=== PATIENT | female | born 1945 | race Caucasian/White ===

== ENCOUNTER → 2020-09-29 | Outpatient (CLI) | payer MEDICARE, OTHER | END | disposition home or self-care (01) | LOC: LABPAT 13:02 | PROVIDERS: ATTEND Orthopaedic Surgery | DX: Z01.812 Encounter for preprocedural laboratory examination (principal); Z22.322 Carrier or suspected carrier of Methicillin resistant Staphylococcus aureus; M43.16 Spondylolisthesis, lumbar region | CPT/HCPCS: 87070 ==

== ENCOUNTER 2020-10-05 08:20 | Day surgery (SDC) | payer MEDICARE, OTHER ==
[2020-10-01 12:19] VITALS: BMI 27.1
--- NOTE | 2020-10-04 09:43 | P.HPOR ---
History of Present Illness H&P Date: 09/29/20 Chief Complaint: Back pain, Leg pain, neurogenic claudication This 75 year old female presents today for a follow up on her back pain and preoperative evaluation. She is still having the same symptoms with low back pain, leg pain, difficulty with walking distances and cramping in her legs. She has tried OTC, RX, PT, injections with no relief. She states she is ready for surgery at this time. She denies any bowel or bladder issues. She denies any genital numbness/tingling. She states no f/c/sob/cp at this time. Her has accompanied her today. Review of Systems 14 points review of systems completed and as stated in HPI, all other systems reviewed are negative. Past Medical History Past Medical History: Chest Pain / Angina, GERD/Reflux, Hypertension, Myocardial Infarction (CO), Osteoarthritis (OA), Renal Disease, Rheumatoid Arthritis (RA), Skin Disorder Additional Past Medical History / Comment(s): hx migraines, CO x 4, irregular heartrate, constipation, "bloating", gout, degenerating disks, psoriasis, anemia, hx kidney stones, frequent UTI's Last Myocardial Infarction Date:: unknown History of Any Multi-Drug Resistant Organisms: None Reported Past Surgical History: Hernia Repair, Hysterectomy Additional Past Surgical History / Comment(s): colonsocopy, EGD, bev cataracts Past Anesthesia/Blood Transfusion Reactions: Motion Sickness Smoking Status: Former smoker - Past Family History Sister(s) Family Medical History: Cancer Medications and Allergies Home Medications Medication Instructions Recorded Confirmed Type Allopurinol [Zyloprim] 100 mg PO DAILY 10/01/20 10/01/20 History Ammonium Lactate Cream [Lac-Hydrin 1 applic TOPICAL BID 10/01/20 10/01/20 History 12% Cream] Aspirin 325 mg PO DAILY PRN 10/01/20 10/01/20 History Aspirin EC [Ecotrin Low Dose] 81 mg PO DAILY 10/01/20 10/01/20 History Claritin(Dose Unknown) 1 tab PO DAILY 10/01/20 10/01/20 History Col-Ride 1 tab PO DAILY 10/01/20 10/01/20 History Denosumab [Prolia] 120 mg SQ DIRECTED 10/01/20 10/01/20 History Esomeprazole Magnesium [NexIUM] 40 mg PO DAILY 10/01/20 10/01/20 History Ferrous Sulfate [Slow Release Iron] 250 mg PO DAILY 10/01/20 10/01/20 History Folic Acid 1 mg PO DAILY 10/01/20 10/01/20 History Furosemide [Lasix] 20 mg PO DAILY 10/01/20 10/01/20 History Gabapentin [Neurontin] 100 mg PO BID 10/01/20 10/01/20 History Ketoconazole 2% Cream [Nizoral 2%] 1 applic TOPICAL DAILY 10/01/20 10/01/20 History Linaclotide [Linzess] 145 mcg PO DAILY 10/01/20 10/01/20 History Magnesium Oxide 400 mg PO DAILY 10/01/20 10/01/20 History Meclizine [Antivert] 12.5 mg PO TID PRN 10/01/20 10/01/20 History Morphine Sulfate Ir [MSIR] 15 mg PO BID PRN 10/01/20 10/01/20 History Morphine Sulfate [Ms Contin] 30 mg PO Q12HR 10/01/20 10/01/20 History Nitroglycerin Sl Tabs [Nitrostat] 0.4 mg SUBLINGUAL Q5M PRN 10/01/20 10/01/20 Hi story Prochlorperazine [Compazine] 10 mg PO Q6H PRN 10/01/20 10/01/20 History Triamcinolone 0.1% Cream [Kenalog 1 applic TOPICAL DAILY PRN 10/01/20 10/01/20 History 0.1% Cream] Zim,S Max Freeze 1 applicate TOPICAL DIRECTED PRN 10/01/20 10/01/20 History polyethylene glycoL 3350 [Miralax] 17 gm PO Q48H 10/01/20 10/01/20 History Allergies Allergy/AdvReac Type Severity Reaction Status Date / Time acetaminophen [From Lortab] Allergy Unknown Verified 10/01/20 11:49 adalimumab [From Humira] Allergy Unknown Verified 10/01/20 11:49 alprazolam [From Xanax] Allergy Unknown Verified 10/01/20 11:51 certolizumab pegol Allergy Unknown Verified 10/01/20 11:49 [From Cimzia] ciprofloxacin [From Cipro] Allergy Unknown Verified 10/01/20 11:49 clindamycin Allergy Unknown Verified 10/01/20 11:49 codeine Allergy Unknown Verified 10/01/20 11:49 escitalopram [From Lexapro] Allergy Unknown Verified 10/01/20 11:49 hydrocodone [From Lortab] Allergy Unknown Verified 10/01/20 11:49 hydroxyzine Allergy Unknown Verified 10/01/20 11:51 infliximab [From Remicade] Allergy Unknown Verified 10/01/20 11:49 methotrexate Allergy Unknown Verified 10/01/20 11:49 metronidazole [From Flagyl] Allergy Unknown Verified 10/01/20 11:49 naproxen Allergy Unknown Verified 10/01/20 11:51 paroxetine [From Paxil] Allergy Unknown Verified 10/01/20 11:49 Penicillins Allergy Unknown Verified 10/01/20 11:49 pilocarpine Allergy Unknown Verified 10/01/20 11:51 sertraline [From Zoloft] Allergy Unknown Verified 10/01/20 11:51 sulfamethoxazole Allergy Unknown Verified 10/01/20 11:49 [From Bactrim] sulfate ion Allergy Unknown Verified 10/01/20 11:49 trimethoprim [From Bactrim] Allergy Unknown Verified 10/01/20 11:49 ustekinumab [From Stelara] Allergy Unknown Verified 10/01/20 11:49 Physical Examination Osteopathic Statement: *. No significant issues noted on an osteopathic structural exam other than those noted in the History and Physical/Consult. PHYSICAL EXAMINATION: General: Awake, alert, appropriate for age, in no acute distress. HEENT: No unusual neck masses around region of lateral neck triangle, thyroid, supraclavicular groove Heart: Regular rate and rhythm, normal S1, S2 and no murmur/gallop. Lungs: Clear to auscultation bilaterally with no use of accessory muscles. Extremities: Skin warm and dry without acute lesions, coloration, temperature, skin intact, no tenderness or erythema Palpation: Please see Pain drawing on Intake sheet for further detail. Midline spinal tenderness: yes lumbar E6 Paralumbar tenderness: yes left > right E6 Parathoracic tenderness: No E6 Buttocks tenderness: yes left > right E6 POSTURAL and MUSCULO-SKELETAL EVALUATION: Coronal Balance: Neutral Recumbent testing: Patient is able to lay flat on back Sagittal Balance: Neutral Neck ROM: Unrestricted Lumbar ROM: restricted with pain Shoulder ROM: Symmetric in abduction, ER/IR Hip ROM: Symmetric in abduction, adduction, ER/IR Knee ROM: Symmetric and intact in Flexion / extension VASCULAR STATUS : LEFT RIGHT Wrist Pulses intact intact Pedal Pulses (Dors. pedis & post.tibialis) intact intact Color normal normal Edema Absent Absent Cranial Nerves: I: Olfactory not tested. II: Visual acuity normal, no visual field deficit noted with confrontation. III,IV: Normal pupillary reflexes & intact extraocular movements without nystagmus. V,: Intact symmetrical facial sensation. VII: Intact symmetrical facial motor movement VIII: Hearing intact. IX,X: Intact gag, swallow, & normal voice. XI: Sternocleidomastoid, trapezius function intact. XII: Tongue midline with normal movements. L'hermitte's Sign: Negative / absent Spurling'Sign: Absent bilaterally. Cubital percussion test: Absent bilaterally. Patsy-Tinel sign - Carpal region: Absent bilaterally. Straight Leg Raising: Absent bilaterally. Crossed straight leg raise: negative O8 MOTOR EXAM (0-5/5, N/T) STRENGTH RIGHT LEFT Shoulder Abd (not part of the INOCENCIO score) 5 5 Elbow Flexors 5 5 Elbow Extensor 5 5 Wrist Dorsiflexors 5 5 Finger Abductor 5 5 Conference Interpreter 5 5 Hip Flexor (Not part of INOCENCIO Motor score) 5 5 Knee Flexor 5 5 Knee Extensor 4 4 Ankle dorsiflexor 4+ 4 Ankle plantarflexion 4 4 Extensor hallucis 5 5 REFLEXES(0-4/2, NT) RIGHT LEFT Upper Extremities 2 2 Lower Extremities 2 2 Pathological Reflexes RIGHT LEFT Abernathy's Absent Absent Clonus Absent Absent Sensory system (0-4, N/T) Test type RU JUNIOR RL LL Joint-Position 2 2 2 2 Vibration 2 2 2 2 Pain & LT sense 2 2 2 2 Dermatomal Deficit: none none none none Gait and Functional Evaluation: Romberg's test: Intact bilaterally Toe heel walk / heel-toe walk intact while maintaining satisfactory balance? No Squatting/straightening w/o assistance to a min of 60 degree knee flexion? No Single leg stance: intact Trendelenburg sign negative bilaterally Hand and finger dexterity intact bilaterally? yes Disdiadochokinesis examination negative bilaterally? yes Results XRAY: AP lateral flex/ex films of L spine show L4-5 Grade I-II spondylolisthesis that is unstable and accentuates on flexion films to around 8-9 mm. There is disc dessication at this level as well as at L5-S1. There is kyphosis of the segment at L4-5. There is spondylosis from L4-S1 with severe spondylosis at L5-S1. There is foraminal stenosis noted as well. AP pelvis shows no acute fracture or dislocaion. Pelvis is stable. CT of the L spine is reviewed from ER visit. This demonstrates similar findings with L4-5 Grade II spondylolisthesis with L5-S1 spondylosis with severe disc dessication, air in the disc space, stenosis centrally as well as foraminally at these levels. No acute fracture or dislocation is noted. MRI of the lumbar spine from 08/09/2020 reveals: grade 2 anterolisthesis L4-L5 with severe arthrosis of the facet joints as well as L5-S1 spondylosis severe with facet arthrosis. There is stenosis foraminally as well essentially related to both of these problems with facet overgrowth and ligamentum flavum hypertrophy. No acute fractures or dislocations noted. Assessment and Plan Assessment: 1. 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 L5-S1 spondylosis severe with radiculopathy 3. Neurogenic claudication 4. Mechanical back pain Plan: Surgical Procedure Risk Review Cierra Roberto is a 75 year old female presenting for evaluation of sudden onset of low back pain, radiculopathy and neurogenic claudication. It was my pleasure to have seen and examined Ms. Roberto. In our visit today we have had a chance to go over subjective complaints, physical examination findings and treatments, including the natural course history without intervention and various interventional options. The imaging demonstrates L4-5 Grade I to II spondylolisthesis with L4-S1 spondylosis severe . On physical exam, Ms. Roberto demonstrates Back pain, LE weakness, difficulty with walking. I explained to the patient that as her condition progresses it could cause continued pain, . At this time, based on the patients imaging and physical exam, I recommend surgery in the form or a: L4-S1 decompression and fusion. I discussed the risk and benefits of this procedure at length with Ms. Roberto. The patient agreed to consider pursuing the procedure mentioned above. Plan: 1. L4-S1 decompression and fusion 2. Follow up with PCP for surgical clearance 3. Review of surgical risks and benefits as well as an educational packet on the proposed surgical procedure. Risks: All surgical procedures come with inherent risks, including those related to positioning, anesthesia, intraoperative findings, and postoperative complications. It is important to understand that surgery does not come with any guarantee of a successful outcome as complications and adverse events are always possible. The patient was given a handout in office today discussing the surgical procedure and risks associated with the intervention, both of which were discussed with the patient. These risks include but are not limited to the following: ? Experiencing same, different or even worse symptoms in back, neck, arms, or legs compared to before surgery. ? Requiring further surgery or other forms of treatment presently or at some time in the future at same or other levels of the intended spine surgery. ? On an extreme but fortunately relatively rare basis severe complication such as blindness, stroke, heart attack, temporary and/or permanent nerve injury, paralysis, coma, or may occur, sometimes without known explanation. ? Surgical complications may include but are not limited to risk of infection, fluid accumulation in the surgical dissection site, including a seroma or hematoma, that requires additional surgery, wound drainage, bleeding, new numbness or weakness, vision changes/loss, spinal fluid leakage, non-healing and/or infected incision, headaches, difficulty or inability to swallow, hoarseness, hemopneumothorax, pneumothorax, impotence, retrograde ejaculation, vaginal dryness; injury to nerves, spinal cord, blood vessels, lymphatics or other vital organs (i.e., bowel injury, injury to the great vessels); heterotop ic bone formation; complications related to the hardware such as screws, rods, cages including misplaced hardware, device failure, instrumentation at the wrong spine level, hardware fracture/breakage, or hardware loosening; vertebral failure of the spinal column above or below the newly placed hardware; retained surgical instrumentations or devices and the need for further surgery. ? Medical risks of the planned spine surgery include but are not limited to generalized Infections to the whole body or local areas outside of the surgical site (sepsis), heart attack, bleeding, anaphylaxis, meningitis, seizure, epilepsy, hearing loss, burn liu, laceration of the head or other areas of the body, bruising, hypersensitivity of the skin, bladder over distension; allergic reaction; shoulder injury related to positioning; fat, blood and air clots to other areas of the body like heart, lungs, brain; failure of internal organs such as lungs, kidneys, liver and excessive bleeding. If blood transfusions are necessary, note that transfusions may cause intolerance reactions such as anaphylaxis or other complex reactions. Despite best efforts, the results of spine surgery might not heal in terms of bone, soft tissues such as skin, fascia, ligaments, and joints. Additionally, in order to achieve best possible results, spine surgery may be carried out beyond the initially planned levels and involve decompression, fusion including insertion of hardware at levels other than the original intended area of surgical interest change some portions of the procedure in order to ensure the best possible outcomes. With spine surgery and spinal fusion, there are different off label uses of instrumentation (devices, implants and hardware) as well as biological substances (bone morphogenic proteins, demineralized bone matrix) as well as using extra bone from allograft sources (i.e. cadaver bone) or autograft (iliac crest bone, ribs, or the spine itself). The patient has been given information about these practices and their inherent risks and benefits. [facility] Physician Assistants are medically trained surgical providers who function in the outpatient, inpatient, and operating room setting under the direct supervision of the attending surgeon.They assist in the operating room with direct supervision of the attending surgeons. The patient has had a chance to review all the listed information, has been given print outs detailing this information, and has had all his/her questions answered to their satisfaction. It was my pleasure to have seen and examined Ms. Roberto. In our visit today we have had a chance to go over my understanding of our patient's current condition, the natural course history without intervention and various interventional options. Questions were invited and answered, and the patient wishes to proceed as outlined above. I have seen and examined the patient for 25 minutes and we have spent more than 50% of the time in repeat and detailed counseling about the patient's condition, its natural course history with out and as much as can be predicted with surgery and re-review of various surgical treatment options. In conclusion,Ms. Roberto and her spouse/partner requested we proceed with the above suggested surgery and are willing to accept risks and limitations of the suggested surgery as nature of the disease process and our best attempts at treatment for the condition. Thank you again for allowing us to be part of your patient's care. Please don't hesitate to contact me if you have any further questions. Signed and authenticated by: Kamar [facility] [address] [place] [address] This message is confidential, intended only for the named recipient(s) and may contain information that is privileged or exempt from disclosure under applicable law. If you are not the intended recipient(s), you are notified that the dissemination, distribution or copying of this information is strictly prohibited. If you received this message in error, please notify the sender then delete this message. Patient verbalizes understanding of the information discussed.
[~2020-10-05 08:20] MED LIST: ACETAMINOPHEN TAB 500 MG TAB PO PRN; GABAPENTIN 300 MG CAP PO PRN; ONDANSETRON 4 MG/2 ML VIAL IVP PRN; TRANEXAMIC ACID 1,000 MG in SODIUM CHLORIDE 0.9% 100 ML IVPB PRN
[2020-10-05] MEDS ORDERED: LACTATED RINGERS 1,000 ML IV ONE ×3 (09:40→16:42)
[2020-10-05] MEDS ORDERED: DEXAMETHASONE SOD PHOSPHATE 4 MG/ML 1 ML VIAL IVP ONE (09:54)
[2020-10-05] MEDS ORDERED: MIDAZOLAM 2 MG/2 ML VIAL IVP ONE (09:55)
[2020-10-05] MEDS ORDERED: FAMOTIDINE 20 MG/2 ML VIAL IVP ONE (09:56)
[2020-10-05] MEDS: CITRIC ACID-SODIUM CITRATE 15 ML CUP PO SCH ×3 (11:04→22:21)
[2020-10-05] MEDS ORDERED: fentaNYL (PF) 50 MCG/ML 2 ML AMP ONE (12:13)
[2020-10-05] MEDS ORDERED: PHENYLEPHRINE-0.9% NACL SYG 1,000 MCG/10 ML SYRINGE ONE (12:13)
[2020-10-05] MEDS ORDERED: PROPOFOL 10 MG/ML 20 ML VIAL IV ONE (12:13)
[2020-10-05] MEDS ORDERED: TRANEXAMIC ACID 1,000 MG/10 ML VIAL ONE (12:13)
[2020-10-05] MEDS ORDERED: LIDOCAINE 1% INJ 10MG/ML (20 ML MDV) ONE (12:13)
[2020-10-05] MEDS ORDERED: SODIUM CHLORIDE 0.9% 100 ML BAG ONE (12:13)
[2020-10-05] MEDS ORDERED: SUCCINYLCHOLINE CHLORIDE 100 MG/5 ML SYR IV ONE (12:13)
[2020-10-05] MEDS ORDERED: GLYCOPYRROLATE 0.2 MG/ML 2 ML VIAL ONE (12:13)
[2020-10-05] MEDS ORDERED: MIDAZOLAM 2 MG/2 ML VIAL ONE (12:13)
[2020-10-05] MEDS ORDERED: BUPIVACAINE (PF) 0.5% 30 ML VIAL SQ ONE (12:57)
[2020-10-05] MEDS ORDERED: THROMBIN (BOVINE) 5,000 UNIT VIAL MISCELLANE ONE (13:07)
[2020-10-05] MEDS ORDERED: GELATIN SPONGE,ABSORB (LARGE) 1 EACH SPONGE MISCELLANE ONE (13:07)
[2020-10-05] MEDS ORDERED: ceFAZolin 3,000 MG in SODIUM CHLORIDE 0.9% IRRIGATIO 3,000 ML IRRIGATION ONE ×2 (13:32→16:31)
[2020-10-05 13:52] LABS: ABG Base Excess -3.5 mmol/L; ABG HCO3 20 mmol/L (21-25); ABG Oxygen Saturation 98.9 % (94-97); ABG PCO2 29 mmHg (35-45); ABG PH 7.44 (7.35-7.45); ABG PO2 200 mmHg (83-108); Allen Test Performed? Yes
[2020-10-05] MEDS ORDERED: VANCOMYCIN 1,000 MG VIAL MISCELLANE ONE (16:02)
[2020-10-05 16:37] LABS: HCT 28.6 % (34.0-46.0); HGB 9.6 gm/dL (11.4-16.0); MCH 30.2 pg (25.0-35.0); MCHC 33.4 g/dL (31.0-37.0); MCV 90.5 fL (80.0-100.0); Mean Platelet Volume 7.9; Platelet Count 123 k/uL (150-450); RBC 3.17 m/uL (3.80-5.40); RDW 14.7 % (11.5-15.5); WBC 9.4 k/uL (3.8-10.6)
--- NOTE | 2020-10-05 17:21 | FL ---
EXAMINATION TYPE: FL guidance operating room, XR lumbar spine 2 or 3V DATE OF EXAM: 10/05/2020 CLINICAL HISTORY: Spondylosis and spondylolisthesis. TECHNIQUE: Fluoroscopy. Intraoperative 2 views lumbar spine. COMPARISON: None. FINDINGS: Fluoroscopic guidance was provided during low back surgical procedure performed by Dr. Pollo marcus. A total of 2 minutes 42 seconds of fluoroscopic time was utilized during the procedure and 13 spot intraoperative images are acquired. Intraoperative images acquired show placement of posterior interpedicular rods and screws bilaterally at L4-S1 levels with placement of metallic disc material. Alignment is satisfactory on intraoperativ e images saved. IMPRESSION: As Above.
[2020-10-05] MEDS ORDERED: GENTAMICIN PER PHARMACY MISCELLANE PRN (17:36)
[2020-10-05] MEDS ORDERED: HYDROcodone/APAP 5-325MG 1 EACH TAB PO PRN (17:38)
[2020-10-05] MEDS: HYDROmorphone 0.5 MG/0.5 ML SYRINGE IVP ONE ×2 (17:53→17:59)
[2020-10-05] MEDS: fentaNYL (PF) 50 MCG/ML 2 ML AMP IVP ONE ×2 (18:07→18:14)
[2020-10-05] MEDS ORDERED: ONDANSETRON 4 MG/2 ML VIAL IVP PRN (18:36)
[2020-10-05] MEDS ORDERED: GENTAMICIN 280 MG in SODIUM CHLORIDE 0.9% 100 ML IVPB SCH (21:00)
[2020-10-05] MEDS: HYDROmorphone 0.5 MG/0.5 ML SYRINGE IVP PRN (22:12)
[2020-10-05] MEDS: GABAPENTIN 300 MG CAP PO SCH (22:13)
[2020-10-05] MEDS: 0.9% NACL WITH KCL 20 MEQ/L 1,000 ML IV SCH (22:17)
[2020-10-06] MEDS: HYDROmorphone 0.5 MG/0.5 ML SYRINGE IVP PRN ×4 (00:01→17:32)
--- NOTE | 2020-10-06 03:09 | P.CONS ---
History of Present Illness - Reason for Consult Consult date: 10/05/20 post op medical management Requesting physician: Kamar Carpenter - Chief Complaint low backpain - History of Present Illness 75 year old female with CKD III, chronic anemia patient comes in for scheduled lumbar decompression and fusion she tolerated procedure well no observed immediate post operative complications Patient denies any chest pain or trouble breathing denies any fevers or chills she claims that pain is well tolerated she tolerated by mouth intake. She denies any new focal neuro deficits Patient has history of chronic kidney disease stage III and chronic anemia she denies any GI bleeding Review of Systems Pertinent positives as noted in HPI. All other systems were reviewed and are negative Past Medical History Past Medical History: Chest Pain / Angina, GERD/Reflux, Hypertension, Myocardial Infarction (MA), Osteoarthritis (OA), Renal Disease, Rheumatoid Arthritis (RA), Skin Disorder Additional Past Medical History / Comment(s): hx migraines, MA x 4, irregular heartrate, constipation, "bloating", gout, degenerating disks, psoriasis, anemia, hx kidney stones, frequent UTI's Last Myocardial Infarction Date:: unknown History of Any Multi-Drug Resistant Organisms: None Reported Past Surgical History: Hernia Repair, Hysterectomy Additional Past Surgical History / Comment(s): colonsocopy, EGD, bev cataracts Past Anesthesia/Blood Transfusion Reactions: Motion Sickness Smoking Status: Former smoker - Past Family History Sister(s) Family Medical History: Cancer Medications and Allergies Home Medications Medication Instructions Recorded Confirmed Type Allopurinol [Zyloprim] 100 mg PO DAILY 10/01/20 10/01/20 History Ammonium Lactate Cream [Lac-Hydrin 1 applic TOPICAL BID 10/01/20 10/01/20 History 12% Cream] Aspirin 325 mg PO DAILY PRN 10/01/20 10/01/20 History Aspirin EC [Ecotrin Low Dose] 81 mg PO DAILY 10/01/20 10/01/20 History Claritin(Dose Unknown) 1 tab PO DAILY 10/01/20 10/01/20 History Col-Ride 1 tab PO DAILY 10/01/20 10/01/20 History Denosumab [Prolia] 120 mg SQ DIRECTED 10/01/20 10/01/20 History Esomeprazole Magnesium [NexIUM] 40 mg PO DAILY 10/01/20 10/05/20 History Ferrous Sulfate [Slow Release Iron] 250 mg PO DAILY 10/01/20 10/01/20 History Folic Acid 1 mg PO DAILY 10/01/20 10/01/20 History Furosemide [Lasix] 20 mg PO DAILY 10/01/20 10/01/20 History Gabapentin [Neurontin] 100 mg PO BID 10/01/20 10/01/20 History Ketoconazole 2% Cream [Nizoral 2%] 1 applic TOPICAL DAILY 10/01/20 10/01/20 History Linaclotide [Linzess] 145 mcg PO DAILY 10/01/20 10/01/20 History Magnesium Oxide 400 mg PO DAILY 10/01/20 10/01/20 History Meclizine [Antivert] 12.5 mg PO TID PRN 10/01/20 10/01/20 History Morphine Sulfate Ir [MSIR] 15 mg PO BID PRN 10/01/20 10/01/20 History Morphine Sulfate [Ms Contin] 30 mg PO Q12HR 10/01/20 10/01/20 History Nitroglycerin Sl Tabs [Nitrostat] 0.4 mg SUBLINGUAL Q5M PRN 10/01/20 10/05/20 History Prochlorperazine [Compazine] 10 mg PO Q6H PRN 10/01/20 10/01/20 History Triamcinolone 0.1% Cream [Kenalog 1 applic TOPICAL DAILY PRN 10/01/20 10/01/20 History 0.1% Cream] Shauna,S Max Freeze 1 applicate TOPICAL DIRECTED PRN 10/01/20 10/01/20 History polyethylene glycoL 3350 [Miralax] 17 gm PO Q48H 10/01/20 10/01/20 History Cyclobenzaprine [Flexeril] 10 mg PO TID 10/05/20 10/05/20 History calcitrioL [Calcitriol] 0.25 mcg PO ONCE 10/05/20 10/05/20 History Allergies Allergy/AdvReac Type Severity Reaction Status Date / Time acetaminophen [From Lortab] Allergy Unknown Verified 10/05/20 08:51 adalimumab [From Humira] Allergy Unknown Verified 10/05/20 08:51 alprazolam [From Xanax] Allergy Unknown Verified 10/05/20 08:51 certolizumab pegol Allergy Unknown Verified 10/05/20 08:51 [From Cimzia] ciprofloxacin [From Cipro] Allergy Unknown Verified 10/05/20 08:51 clindamycin Allergy Unknown Verified 10/05/20 08:51 codeine Allergy Unknown Verified 10/05/20 08:51 escitalopram [From Lexapro] Allergy Unknown Verified 10/05/20 08:51 hydrocodone [From Lortab] Allergy Unknown Verified 10/05/20 08:51 hydroxyzine Allergy Unknown Verified 10/05/20 08:51 infliximab [From Remicade] Allergy Unknown Verified 10/05/20 08:51 methotrexate Allergy Unknown Verified 10/05/20 08:51 metronidazole [From Flagyl] Allergy Unknown Verified 10/05/20 08:51 naproxen Allergy Unknown Verified 10/05/20 08:51 paroxetine [From Paxil] Allergy Unknown Verified 10/05/20 08:51 Penicillins Allergy Unknown Verified 10/05/20 08:51 pilocarpine Allergy Unknown Verified 10/05/20 08:51 sertraline [From Zoloft] Allergy Unknown Verified 10/05/20 08:51 sulfamethoxazole Allergy Unknown Verified 10/05/20 08:51 [From Bactrim] sulfate ion Allergy Unknown Verified 10/05/20 08:51 trimethoprim [From Bactrim] Allergy Unknown Verified 10/05/20 08:51 ustekinumab [From Stelara] Allergy Unknown Verified 10/05/20 08:51 Physical Exam Vitals: Vital Signs Temp Pulse Pulse Resp BP Pulse Ox 10/05/20 20:37 91 19 167/79 96 10/05/20 18:47 71 16 110/56 98 10/05/20 18:31 71 16 101/52 96 10/05/20 18:16 78 16 114/51 97 10/05/20 18:01 80 16 160/82 97 10/05/20 17:46 86 18 137/64 100 10/05/20 17:33 96.7 F L 89 14 142/68 99 10/05/20 10:18 104 H 17 124/61 99 10/05/20 09:04 98.0 F 120 H 17 141/66 98 Intake and Output 10/05/20 10/05/20 10/06/20 14:59 22:59 06:59 Intake Total 1551 601 Output Total 1825 Balance 1551 -1224 Intake: IV 1551 601 Output: Urine 1325 Estimated Blood Loss 500 Constitutional: No acute distress, conversant, pleasant Eyes: Anicteric sclerae, moist conjunctiva, Pupils equal round reactive to light ENMT: NC/AT Oropharynx clear, no erythema, or exudates Neck: Supple, FROM, no masses, or JVD No carotid bruits No thyromegaly Lungs: Clear to auscultation Clear to percussion Normal respiratory effort, no accessory muscle use Cardiovascular: Heart regular in rate and rhythm, No murmurs, gallops, or rubs No peripheral edema Abdominal: Soft Nontender, no guarding, rebound or rigidity Abdomen moving with respiration Normoactive bowel sounds No hepatomegaly, No splenomegaly No palpable mass No abdominal wall hernia noted Skin: Normal temperature, tone, texture, turgor No induration No subcutaneous nodules No rash, lesions No ulcers Extremities: No digital cyanosis No clubbing Pedal pulses intact and symmetrical Radial pulses intact and symmetrical No calf tenderness Psychiatric: Alert and oriented to person, place and time Appropriate affect fair judgement Neuro Muscles Strength 5/5 in bilateral upper extremities, lower extremities distal muscle groups strength 5/5 , however could not assess proximal muscle groups due to patient fear of pain she didn't want to be moving around a lot Sensation to light touch grossly present throughout Cranial nerves II-XII grossly intact No focal sensory deficits Lymphatics: no palpable cervical or supraclavicular , or inguinal lymph nodes Results CBC & Chem 7: 10/05/20 16:33 10/05/20 16:33 Labs: Abnormal Lab Results - Last 24 Hours (Table) 10/05/20 10/05/20 10/05/20 Range/Units 13:40 16:33 16:33 RBC 3.17 L (3.80-5.40) m/uL Hgb 9.6 L (11.4-16.0) gm/dL Hct 28.6 L (34.0-46.0) % Plt Count 123 L (150-450) k/uL ABG pCO2 29 L (35-45) mmHg ABG pO2 200 H (83-108) mmHg ABG HCO3 20 L (21-25) mmol/L ABG O2 Saturation 98.9 H (94-97) % Creatinine 1.66 H (0.52-1.04) mg/dL Assessment and Plan Assessment: Chronic low back pain status post lumbar spine decompression and fusion postoperative day 0 DVT prophylaxis and pain control per orthopedic team Chronic kidney disease stage III No baseline creatinine continue to monitor renal function and urine output monitor electrolytes Bicytopenia with anemia and thrombocytopenia Patient denies any bleeding Anemia of chronic disease Follow-up labs Thank you for allowing us to participate in the care of this patient. Do not hesitate to contact us with questions. Someone can be reached from the [facility] hospitalist group at all hours of the day at [phone].
--- NOTE | 2020-10-06 05:38 | CT ---
EXAMINATION TYPE: CT lumbar spine wo con DATE OF EXAM: 10/06/2020 COMPARISON: None HISTORY: Post Op L-Spine Surgery CT DLP: 957.50 mGycm Automated exposure control for dose reduction was used. Images obtained from the level of T12-S2 vertebra without contrast. There is posterior fusion surgery from L4 to S1. There is disc prosthesis at L4-5 and L5-S1. There is 1 cm anterior subluxation of L4 in relation L5. Exam is limited by the metal artifact. There is no l umbar paraspinal mass. Abdominal aorta is atheromatous. There is no compression fracture. I see no fo sherri bone destruction. Spinal canal not well visualized at the surgery levels but no obvious spinal st enosis. IMPRESSION: There is L4-5 spondylolisthesis. No compression fracture. I have no preoperative exam to compare. No definite pathologic fluid collection seen.
[2020-10-06 07:39] LABS: African American GFR (CKD) 44 (>60 ml/min/1.73 sqM); Anion Gap 11 mmol/L; Blood Urea Nitrogen 29 mg/dL (7-17); Calcium 8.4 mg/dL (8.4-10.2); Carbon Dioxide 22 mmol/L (22-30); Chloride 104 mmol/L (98-107); Glucose 110 mg/dL (74-99); Non-African American GFR(CKD) 38 (>60 ml/min/1.73 sqM); Potassium 4.6 mmol/L (3.5-5.1); Sodium 137 mmol/L (137-145)
--- NOTE | 2020-10-06 08:05 | P.PN ---
Subjective Progress Note Date: 10/06/20 Principal diagnosis: Spondylolisthesis L4 5 Patient seen and examined this morning she is doing very well she is in bed currently but she has been out of bed urinating passing gas and walking around. She states the pain is very well-controlled and she is very happy states the p ain in her leg is much better and that her legs feel stronger. She denies any fevers chills shortness of breath or chest pain overnight her drain is in place and did have a high output overnight however it is slowed significantly Objective - Vital Signs Vital signs: Vital Signs Temp 97.5 F L 10/06/20 07:55 Pulse 101 H 10/06/20 07:55 Resp 16 10/06/20 07:55 BP 122/70 10/06/20 07:55 Pulse Ox 91 L 10/06/20 07:55 Intake & Output 10/05/20 10/06/20 10/06/20 18:59 06:59 18:59 Intake Total 2152 Output Total 1825 1060 Balance 327 -1060 Weight 67.132 kg Intake: IV 2152 Output: Drainage 160 Back 160 Urine 1325 900 Estimated Blood Loss 500 - Exam Patient is alert and oriented 3 appears well-nourished well-hydrated is in no acute distress. They does not appear septic. On exam the patient has no tenderness to palpation of her thoracic or lumbar spine. There is no edema or ballottement sign. Lower extremities with 5 out of 5 strength in all major muscle groups Upper extremities show 5/5 strength in all major muscle groups. There is FROM that is painless of the b/l UE and LE in all major joints. They are intact to light touch sensation in L2 to S1 nerve distribution. Patient has palpable dorsalis pedis was posterior tibial pulses. Compartments are soft and compressible. Patient shows a negative Homans, Abernathy's, negative Babinski's negative clonus bilaterally. negative straight leg raise bilaterally. No tensioning signs. Cranial nerves II through XII are grossly intact. Overall alignment is well-maintained in the sagittal coronal planes. DTR 2/4 all upper and lower Incision is clean and dry dressing is clean and dry her drain put out 900 overnight however it is slowed significantly. It is serosanguineous in nature. Minimal tenderness to palpation around the incision no fluctuance no hematoma - Labs CBC & Chem 7: 10/05/20 16:33 10/06/20 06:42 Labs: Abnormal Lab Results - Last 24 Hours (Table) 10/05/20 10/05/20 10/05/20 Range/Units 13:40 16:33 16:33 RBC 3.17 L (3.80-5.40) m/uL Hgb 9.6 L (11.4-16.0) gm/dL Hct 28.6 L (34.0-46.0) % Plt Count 123 L (150-450) k/uL ABG pCO2 29 L (35-45) mmHg ABG pO2 200 H (83-108) mmHg ABG HCO3 20 L (21-25) mmol/L ABG O2 Saturation 98.9 H (94-97) % BUN (7-17) mg/dL Creatinine 1.66 H (0.52-1.04) mg/dL Glucose (74-99) mg/dL 10/06/20 Range/Units 06:42 RBC (3.80-5.40) m/uL Hgb (11.4-16.0) gm/dL Hct (34.0-46.0) % Plt Count (150-450) k/uL ABG pCO2 (35-45) mmHg ABG pO2 (83-108) mmHg ABG HCO3 (21-25) mmol/L ABG O2 Saturation (94-97) % BUN 29 H (7-17) mg/dL Creatinine 1.35 H (0.52-1.04) mg/dL Glucose 110 H (74-99) mg/dL Assessment and Plan Assessment: 1. 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 L5-S1 spondylosis severe with radiculopathy 3. Neurogenic claudication 4. Mechanical back pain Plan: -Appreciate medicine management. Symptom Control: -Pain control: Adequate at this time . Would recommend low on the narcotic side of pain medications if needed. Could try a muscle relaxer as well Activity: -Aggressive ambulation protocol. OOB with all meals. OOB or in chair 4-5x daily. -PT/OT No braces needed for up and about Prophylaxis: -TEDs, SCDs, mechanical ppx. OK for heparin today. Early ambulation is best. -GI ppx. Imaging/labs: Computed tomography scan shows hardware in good position with stabilization L4 to S1 No further imaging needed -Trend labs as appropriate Dispo: Pending Home with home health versus rehab. She has somewhat of a difficult home situation and may not be able to care for herself however she would like to go home if possible.
[2020-10-06] MEDS: CITRIC ACID-SODIUM CITRATE 15 ML CUP PO SCH ×4 (08:33→21:48)
[2020-10-06] MEDS: GABAPENTIN 300 MG CAP PO SCH ×3 (08:34→21:48)
[2020-10-06] MEDS: SENNOSIDES 8.6 MG TAB PO SCH (08:34)
[2020-10-06] MEDS: allopurinoL 100 MG TAB PO SCH (08:34)
[2020-10-06] MEDS: PANTOPRAZOLE 40 MG TABLET PO SCH (08:34)
[2020-10-06] MEDS: CYCLOBENZAPRINE 10 MG TAB PO SCH (08:34)
[2020-10-06] MEDS: MORPHINE SULFATE ER 30 MG TABLET PO SCH ×2 (08:56→21:48)
[2020-10-06] MEDS: 0.9% NACL WITH KCL 20 MEQ/L 1,000 ML IV SCH ×2 (09:43→23:45)
[2020-10-06] MEDS ORDERED: GENTAMICIN PER PHARMACY MISCELLANE PRN (10:39)
--- NOTE | 2020-10-06 12:26 | P.OP ---
Date of Procedure: 10/05/20 Preoperative Diagnosis: 1. L4-5 Grade II spondylolisthesis 2. L4-S1 spondylosis 3. L4-S1 stenosis 4. Neurogenic claudication 5. Mechanical back pain Postoperative Diagnosis: 1. L4-5 Grade II spondylolisthesis 2. L4-S1 spondylosis 3. L4-S1 stenosis 4. Neurogenic claudication 5. Mechanical back pain Procedure(s) Performed: 1. L4-S1 posteriolateral interbody fusion 2. L4-S1 bilateral laminectomy, complete facetectomy and foraminotomy 3. L4-5 Intradiscal osteotomy for correction of deformity (3 column) 4. L4-5 spondylolisthesis reduction 5. Use of intraoperative neuromonitoring Implants: [place] screws x6 Globus Sable cages x2 7-13 15 deg lordosis and 6-12 8 deg lordosis Bio4 [place] Autograft Anesthesia: GETA Surgeon: Kamar Carpenter Steel Post Installer #1: Bao Adair (Was present for the entire case and necessary due to the complexity of the case) Estimated Blood Loss (ml): 500 IV fluids (ml): 2,500 Urine output (ml): 500 Pathology: none sent Condition: stable Disposition: PACU Indications for Procedure: 75 yo female presented with back pain, b/l LE pain, feeling of instability in her back for several years. She was found to have L4-5 grade II s ponydlolisthesis as well as L4-S1 spondylosis and severe stenosis L4-S1. She c/o difficulty with ambulation as well as difficulty walking long distances. She had been through multiple different conservative modalities including PT, RX and OTC meds, home exercises, injections with no improvement of her symptoms. She has elected to undergo L4-S1 fusion. We discussed risks and benefits of surgery at length and these were reviewed under risk review. She is willing to proceed with surgery. Operative Findings: Mobile L4-5 Grade II spondylolisthesis with R sided pars defect as well as unstable L5-S1 with high mobility. Exuberent facet arthrosis, with pars elongation at L4. Description of Procedure: The patient was seen and examined in the preoperative area. All preoperative protocols were followed. Informed consent was obtained risks and benefits of the procedure were discussed at length. Risks including bleeding infection damage to the surrounding tissue and risk of reoperation were discussed with the patient. Risk of anesthesia up to and including was a discussed with the patient. These are outlined in the risk review. They were willing to accept these risks and all of the risks of surgery. The patient was given a weight- based dose of antibiotics in the form of 2 g Ancef as well as weight-based dose gentamicin. The patient was seen and evaluated by the anesthesia team who deemed them fit for surgery. The site was marked, the patient was willing to proceed with the procedure. The patient was transferred to the operative suite by the Department of anesthesia. They were then drifted off to sleep by the department anesthesia GETA. The patient tolerated this well. [Corey catheter was placed by nursing staff, atraumatically]. Once confirmation of lines and ventilation the patient was transferred to a [prone Josafat table very carefully]. All bony prominences including wrists, elbows, axilla, chest, hips, and thighs, and feet were padded very well. Special attention was paid to the genitalia and these were padded accordingly. SCDs were placed on bilateral lower extremities and were connected. Arms were well padded and placed [on arm boards up and out in the 90/90 position]. Once in position, again we confirmed good ventilation capabilities and that lines were running appropriately. The patient's lumbar spine was then exposed. 1010s were placed outlining the incision site. Standard alcohol was used to clean the incision site and allowed to dry. C-arm was used to biomark the patient and confirm level for incision which was marked with a skin marker. Operative briefing was performed with all teams and everyone in agreement to proceed. The patient was then prepped and draped in a normal sterile fashion. Timeout was then performed and all parties were in agreement with the procedure to be performed. Skin incision was then made over the previously by marked area midline. Di ssection was taken down to the lumbosacral fascia which was identified and cleaned with a Humphries fasciotomy was then made midline and subperiosteal dissection taken over L3 through S1 for excursion purposes. Once we exposed the L4 5 facet joints as well as L5-S1 region we noted exuberant osteophytic changes as well as pars elongation of the L4 region. We then exposed transverse processes of L4-L5 and the sacral Cheryl S1 these were then decorticated bilaterally. We then proceeded to place screws using AP and lateral fluoroscopy in a sequential fashion starting at L4 on the left-hand side. High-speed bur was used to access the pedicle followed by a pedicle finder and a feeler to ensure that we are not medial. This was followed by the screw. This proceeded on the left-hand side at L4-L5 and S1 followed by the right-hand side at L4-L5 and S1. Once the screws were in position AP and lateral fluoroscopy confirmed good position we then tested the screws and all screws tested above 20 mA. We then proceeded with decompression bilateral laminectomy complete facetectomy and foraminotomies were performed at L4 5 and L5-S1 bilaterally. The nerve roots were completely exposed to the foraminal ligament which was released at L4 5 and L5-S1 bilaterally. Once this was completed and meticulous hemostasis was performed we irrigated the wound thoroughly. We then proceeded with discectomy at L4-L5. We performed an intradiscal osteotomy with quarter-inch osteotome at this level and a 3 column osteotomy technique. This allowed for a Complete discectomy to be performed at L4-L5. Sequential shaving was then taken up to a 11 shaver and a globus Sabal cage was selected 7-1315 lordotic cage. This was then impacted into place and expanded. This provided good distraction however the listhesis was very stubborn and did not fully reduce at this time. We then placed rods on one side of the construct and reduced the floridalma to the screw which allowed for some reduction of the listhesis however was still fairly stubborn in this area. Due to not wanting to tension the nerves anymore we accepted this. We did back fill the cage of bio 4 and DBM. Theracell Bullet's were placed anterior to the cage prior to cage placement. The cages in good position on AP and lateral and was stable. Within Elizabeth attention to the L5-S1 region were complete discectomy was performed sequential shaving was performed. We did scrape the endplates and then placed a Sabal cage 6-12 8 lordotic. This was then expanded under AP and lateral fluoroscopy and provided good reduction and distraction this area. We did back fill is cage with bio 4 as well as DBM and anterior to the cage replaced their cell bullets. The wound was then again copiously irrigated with normal sterile saline. We then selected final rods and placed them very. Lateral fluoroscopy reduce the spondylolisthesis as much as it would allow without undue stress on the nerves. We then placed set screws and final tightened all the set screws. A cross-link was selected and this was then placed. Meticulous hemostasis was then performed using FloSeal and bipolar electrocautery. We then copiously irrigated the wound once again with normal sterile saline. Surgicel was then placed over the dura bone graft was in place and posterior lateral gutters comminution of autograft allograft and bio 4. This was then impacted into place. A deep drain was then placed vancomycin powder was placed deep within the wound and we proceeded with closure in a layered fashion the fascia was then closed with #1 Vicryl in a simple fashion f ollowed by a running barbed unidirectional strata fix. Then closed the subcu tissue can prescribe fascia with 0 Vicryl followed by 2-0 Vicryl in the subcu tissue and 2-0 nylon in the skin in a running fashion. The wound edges approximated very well. We then cleaned and dressed the wound sterilely with sterile Adaptic 4 x 4's and Tegaderms. Drain was stitched in with a 2-0 nylon drain sponge was placed along with a Tegaderm. Drain was hooked up and had good suction. The patient was transferred back to her hospital bed atraumatically. Drain continued to hold suction and were in good position. Patient was then awakened and extubated by the department of anesthesia having tolerated the procedure very well with no complications. She was transferred to the postoperative care unit in stable condition.
[2020-10-06] MEDS: DEXAMETHASONE SOD PHOSPHATE 4 MG/ML 1 ML VIAL IV SCH ×2 (12:27→17:31)
[2020-10-06 13:37] LABS: Basophils # (A) 0.02 X 10*3/uL (0.00-0.10); Basophils % (A) 0.1 %; Eosinophils # (A) 0.02 X 10*3/uL (0.04-0.35); Eosinophils % (A) 0.1 %; HCT 29.8 % (37.2-46.3); HGB 9.1 g/dL (12.0-15.0); Lymphocytes # (A) 2.31 X 10*3/uL (0.90-5.00); Lymphocytes % (A) 13.3 %; MCH 29.7 pg (27.0-32.0); MCHC 30.5 g/dL (32.0-37.0); MCV 97.4 fL (80.0-97.0); Mean Platelet Volume 10.8 fL (9.5-12.2); Monocytes # (A) 1.38 X 10*3/uL (0.20-1.00); Monocytes % (A) 7.9 %; Neutrophils # (A) 13.56 X 10*3/uL (1.80-7.70); Neutrophils % (A) 78.1 %; Platelet Count 196 X 10*3/uL (140-440); RBC 3.06 X 10*6/uL (4.10-5.20); RDW 14.5 % (11.5-14.5); WBC 17.37 X 10*3/uL (4.50-10.00)
[2020-10-06 13:38] LABS: Acanthocytes 2+
--- NOTE | 2020-10-06 14:23 | P.PN ---
<Bryon Santos - Last Filed: 10/06/20 14:13> Subjective Progress Note Date: 10/06/20 Hospital course: Patient is a very pleasant 75-year-old female with a past medical history of c hronic anemia and CTD stage III. Patient currently admitted under Ortho-content production specialist, Dr. Carpenter status post L4 through S1 decompression completed on 10/05/20. We have been consulted for continued medical management. Physical exam: Patient seen and fully evaluated at the bedside. Patient is currently postop day 1 reports feeling slight postoperative pain and lower back with decreased sensation in left lower extremity and burning and left foot. Patient was ambulatory in room previously to experiencing increased pain and burning. Patient denies having any numbness and range of motion remains intact. No further neurological deficits present. Dr. Carpenter notified and no further recommendations at this time. Patient tolerating postoperative diet denies having any nausea or vomiting. Patient does report mild constipation order brian geoffrey for MiraLAX, and we will further evaluate tomorrow. Patient denies having any headache, lightheadedness, dizziness, chest pain, palpitations, shortness of breath, abdominal pain, or experiencing any numbness/tingling/weakness in her extremities. General: non toxic, no distress, appears at stated age Derm: warm, dry Head: atraumatic, normocephalic, symmetric Eyes: EOMI, no lid lag, anicteric sclera Mouth: no lip lesion, mucus membranes moist Cardiovascular: S1S2 reg, no murmur, positive posterior tibial pulse bilateral, Lungs: CTA bilateral, no rhonchi, no rales , no accessory muscle use Abdominal: soft, nontender to palpation, no guarding, no appreciable organomegaly Ext: no gross muscle atrophy, no edema, no contractures. Range of motion intact. Neuro: GCS 15. CN II-XII grossly intact. Patient reports slight decrease in sensation to left lower extremity. Range of motion intact. No further focal neuro deficits Psych: Alert, oriented, appropriate affect Plan of care: Chronic low back pain status post lumbar spine decompression and fusion completed on 10/05/20 -Postop day 1 -Pain management, DVT prophylaxis, PT/OT, and weightbearing per primary admitting orthopedic team. Chronic kidney disease stage III -Continue to monitor closely with repeat a.m. labs. -No previous labs for baseline measurements. Bicytopenia with anemia and thrombocytopenia -Likely chronic in nature, patient does report history of anemia and denies any noted bleeding or bruising. No previous labs for baseline measurements. -We will continue to monitor with repeat a.m. labs. Thank you for allowing us to participate in the care of this pleasant patient. Do not hesitate to contact us with questions. Someone can be reached from the [facility] hospitalist group all hours of the day at [phone] or via perfect serve. Objective - Vital Signs Vital signs: Vital Signs Temp 97.5 F L 10/06/20 07:55 Pulse 101 H 10/06/20 07:55 Resp 16 10/06/20 07:55 BP 122/70 10/06/20 07:55 Pulse Ox 91 L 10/06/20 07:55 Intake & Output 10/05/20 10/06/20 10/06/20 18:59 06:59 18:59 Intake Total 2152 Output Total 1825 1060 Balance 327 -1060 Weight 67.132 kg Intake: IV 2152 Output: Drainage 160 Back 160 Urine 1325 900 Estimated Blood Loss 500 - Labs CBC & Chem 7: 10/06/20 06:42 10/06/20 06:42 Labs: Abnormal Lab Results - Last 24 Hours (Table) 10/05/20 10/05/20 10/05/20 Range/Units 13:40 16:33 16:33 RBC 3.17 L (3.80-5.40) m/uL Hgb 9.6 L (11.4-16.0) gm/dL Hct 28.6 L (34.0-46.0) % Plt Count 123 L (150-450) k/uL ABG pCO2 29 L (35-45) mmHg ABG pO2 200 H (83-108) mmHg ABG HCO3 20 L (21-25) mmol/L ABG O2 Saturation 98.9 H (94-97) % BUN (7-17) mg/dL Creatinine 1.66 H (0.52-1.04) mg/dL Glucose (74-99) mg/dL 10/06/20 Range/Units 06:42 RBC (3.80-5.40) m/uL Hgb (11.4-16.0) gm/dL Hct (34.0-46.0) % Plt Count (150-450) k/uL ABG pCO2 (35-45) mmHg ABG pO2 (83-108) mmHg ABG HCO3 (21-25) mmol/L ABG O2 Saturation (94-97) % BUN 29 H (7-17) mg/dL Creatinine 1.35 H (0.52-1.04) mg/dL Glucose 110 H (74-99) mg/dL <FazalAndressa A - Last Filed: 10/06/20 18:06> Subjective Patient seen and examined independently. Patient was also seen by Bryon Santos NP and case was discussed. I am in agreement with subjective, physical exam, assessment and plan as written above and amended below. Patient seen and examined. D/W patient that interventricular block was on her pre-op EKG and that she has a fast heart rate currently. Patient states that she just received IV pain meds and is now comfortable. D/W nursing that patient just had her first dose of short acting pain meds since 3 am, nurse states she had been intermittently sleeping though out the day. General: ill appearing, mild distress, appears at stated age Derm: warm, dry Head: atraumatic, normocephalic, symmetric Eyes: EOMI, no lid lag, anicteric sclera Mouth: no lip lesion, mucus membranes moist Cardiovascular: S1S2 reg, no murmur, positive posterior tibial pulse bilateral, Lungs: CTA bilateral, no rhonchi, no rales , no accessory muscle use Abdominal: soft, nontender to palpation, no guarding, no appreciable organomegaly Ext: no gross muscle atrophy, no edema, no contractures Neuro: CN II-XI grossly intact, no focal neuro deficits Psych: Alert, oriented, appropriate affect Objective - Vital Signs Vital signs: Vital Signs Temp 98.2 F 10/06/20 14:00 Pulse 128 H 10/06/20 14:00 Resp 16 10/06/20 14:00 BP 121/69 10/06/20 14:00 Pulse Ox 98 10/06/20 14:00 Intake & Output 10/05/20 10/06/20 10/06/20 18:59 06:59 18:59 Intake Total 2152 200 Output Total 1825 1060 Balance 327 -1060 200 Weight 67.132 kg Intake: IV 2152 Oral 200 Output: Drainage 160 Back 160 Urine 1325 900 Estimated Blood Loss 500 Other: Voiding Method Indwelling Catheter - Labs CBC & Chem 7: 10/06/20 16:03 10/06/20 06:42 Labs: Abnormal Lab Results - Last 24 Hours (Table) 10/05/20 10/06/20 10/06/20 Range/Units 16:33 06:42 06:42 WBC 17.37 H (4.50-10.00) X 10*3/uL RBC 3.06 L (4.10-5.20) X 10*6/uL Hgb 9.1 L (12.0-15.0) g/dL Hct 29.8 L (37.2-46.3) % MCV 97.4 H (80.0-97.0) fL MCHC 30.5 L (32.0-37.0) g/dL Immature Gran # 0.08 H (0.00-0.04) X 10*3/uL Neutrophils # 13.56 H (1.80-7.70) X 10*3/uL Monocytes # 1.38 H (0.20-1.00) X 10*3/uL Eosinophils # 0.02 L (0.04-0.35) X 10*3/uL BUN 29 H (7-17) mg/dL Creatinine 1.66 H 1.35 H (0.52-1.04) mg/dL Glucose 110 H (74-99) mg/dL 10/06/20 Range/Units 16:03 WBC 13.7 H (4.50-10.00) X 10*3/uL RBC 3.15 L (4.10-5.20) X 10*6/uL Hgb 9.8 L (12.0-15.0) g/dL Hct 29.0 L (37.2-46.3) % MCV (80.0-97.0) fL MCHC (32.0-37.0) g/dL Immature Gran # (0.00-0.04) X 10*3/uL Neutrophils # (1.80-7.70) X 10*3/uL Monocytes # (0.20-1.00) X 10*3/uL Eosinophils # (0.04-0.35) X 10*3/uL BUN (7-17) mg/dL Creatinine (0.52-1.04) mg/dL Glucose (74-99) mg/dL
[2020-10-06] MEDS ORDERED: SODIUM CHLORIDE 0.9% 500 ML 500 ML IV ONE (14:29)
[2020-10-06 16:26] LABS: HGB 9.8 gm/dL (11.4-16.0); MCHC 33.7 g/dL (31.0-37.0); Mean Platelet Volume 8.4; Platelet Count 182 k/uL (150-450); RBC 3.15 m/uL (3.80-5.40); RDW 14.8 % (11.5-15.5); WBC 13.7 k/uL (3.8-10.6)
[2020-10-06] MEDS: polyethylene glycoL 3350 17 GM POWD.PACK PO SCH (17:32)
[2020-10-06] MEDS ORDERED: IPRATROPIUM-ALBUTEROL 3 ML NEB INHALATION PRN (19:46)
[2020-10-07] MEDS: HYDROmorphone 0.5 MG/0.5 ML SYRINGE IVP PRN ×4 (00:09→18:28)
[2020-10-07] MEDS: DEXAMETHASONE SOD PHOSPHATE 4 MG/ML 1 ML VIAL IV SCH ×5 (00:10→23:42)
[2020-10-07] MEDS: CITRIC ACID-SODIUM CITRATE 15 ML CUP PO SCH ×4 (07:20→21:34)
[2020-10-07] MEDS: MORPHINE SULFATE ER 30 MG TABLET PO SCH ×2 (07:21→21:34)
[2020-10-07] MEDS: allopurinoL 100 MG TAB PO SCH (07:21)
[2020-10-07] MEDS: GABAPENTIN 300 MG CAP PO SCH ×3 (07:21→21:34)
[2020-10-07] MEDS: CYCLOBENZAPRINE 10 MG TAB PO SCH (07:22)
[2020-10-07] MEDS: SENNOSIDES 8.6 MG TAB PO SCH (07:22)
[2020-10-07] MEDS: polyethylene glycoL 3350 17 GM POWD.PACK PO SCH (07:22)
[2020-10-07] MEDS: PANTOPRAZOLE 40 MG TABLET PO SCH (07:22)
--- NOTE | 2020-10-07 08:14 | P.PN ---
Subjective Progress Note Date: 10/07/20 Principal diagnosis: Spondylolisthesis L4 5 Pt s/e. She is awake alert and sitting up in bed getting ready for breakfast. She states she thinks she overdid it yesterday as she is very sore today which could be true as she was up and about yesterday quite often. She was having some pain control issues but she is better now. She is on chronic pain meds, but needs breakthrough and higher doses due to this. She States some pain in her legs but good strength. Denies any f/c/sob/cp overnight. Denies any bowel or bladder symptoms. Corey in place to be DC today. Denies any perineal numbness/tingling. Objective - Vital Signs Vital signs: Vital Signs Temp 99.0 F 10/07/20 07:35 Pulse 102 H 10/07/20 07:35 Resp 20 10/07/20 07:35 BP 117/71 10/07/20 07:35 Pulse Ox 90 L 10/07/20 07:35 Intake & Output 10/06/20 10/07/20 10/07/20 18:59 06:59 18:59 Intake Total 200 Output Total 60 1900 Balance 140 -1900 Intake: Oral 200 Output: Drainage 60 Back 60 Urine 1900 Other: Voiding Method Indwelling Catheter Indwelling Catheter - Exam Exam is repeated today. No changes. Dressing is CDI. No EEE. No fluctuate around incision. Drain site slightly saturated. Mild TTP paralumbar. Patient is alert and oriented 3 appears well-nourished well-hydrated is in no acute distress. They does not appear septic. On exam the patient has no tenderness to palpation of her thoracic or lumbar spine. There is no edema or ballottement sign. Lower extremities with 5 out of 5 strength in all major muscle groups Upper extremities show 5/5 strength in all major muscle groups. There is FROM that is painless of the b/l UE and LE in all major joints. They are intact to light touch sensation in L2 to S1 nerve distribution. Patient has palpable dorsalis pedis was posterior tibial pulses. Compartments are soft and compressible. Patient shows a negative Homans, Abernathy's, negative Babinski's negative clonus bilaterally. negative straight leg raise bilaterally. No tensioning signs. Cranial nerves II through XII are grossly intact. Overall alignment is well-maintained in the sagittal coronal planes. DTR 2/4 all upper and lower Incision is clean and dry dressing is clean and dry her drain put out 900 overnight however it is slowed significantly. It is serosanguineous in nature. Minimal tenderness to palpation around the incision no fluctuance no hematoma - Labs CBC & Chem 7: 10/06/20 16:03 10/06/20 06:42 Labs: Abnormal Lab Results - Last 24 Hours (Table) 10/06/20 10/06/20 Range/Units 06:42 16:03 WBC 17.37 H 13.7 H (4.50-10.00) X 10*3/uL RBC 3.06 L 3.15 L (4.10-5.20) X 10*6/uL Hgb 9.1 L 9.8 L (12.0-15.0) g/dL Hct 29.8 L 29.0 L (37.2-46.3) % MCV 97.4 H (80.0-97.0) fL MCHC 30.5 L (32.0-37.0) g/dL Immature Gran # 0.08 H (0.00-0.04) X 10*3/uL Neutrophils # 13.56 H (1.80-7.70) X 10*3/uL Monocytes # 1.38 H (0.20-1.00) X 10*3/uL Eosinophils # 0.02 L (0.04-0.35) X 10*3/uL Assessment and Plan Assessment: 75 yo female POD2 L4-S1 decompression fusion doing well. 1. 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 L5-S1 spondylosis severe with radiculopathy 3. Neurogenic claudication 4. Mechanical back pain Plan: -Appreciate medicine management. Symptom Control: -Pain control: Adequate at this time . Would recommend low on the narcotic side of pain medications if needed. Could try a muscle relaxer as well Activity: -Aggressive ambulation protocol. OOB with all meals. OOB or in chair 4-5x daily. -PT/OT No braces needed for up and about Prophylaxis: -TEDs, SCDs, mechanical ppx. OK for heparin today. Early ambulation is best. -GI ppx. Imaging/labs: Computed tomography scan shows hardware in good position with stabilization L4 to S1 No further imaging needed -Trend labs as appropriate Dispo: Pending, may need rehab as her home situation is poor for recovery and she does not have a lot of help.
[2020-10-07 08:50] LABS: HCT 26.6 % (37.2-46.3); HGB 8.2 g/dL (12.0-15.0); MCH 29.5 pg (27.0-32.0); MCHC 30.8 g/dL (32.0-37.0); MCV 95.7 fL (80.0-97.0); Mean Platelet Volume 10.4 fL (9.5-12.2); Platelet Count 191 X 10*3/uL (140-440); RBC 2.78 X 10*6/uL (4.10-5.20); RDW 14.6 % (11.5-14.5); WBC 14.04 X 10*3/uL (4.50-10.00)
[2020-10-07] MEDS: 0.9% NACL WITH KCL 20 MEQ/L 1,000 ML IV SCH (13:14)
[2020-10-07] MEDS ORDERED: GENTAMICIN IN NACL ISO-OSM PMX 80 MG in SALINE 1 100ML.BAG IVPB SCH (22:00)
[2020-10-08] MEDS: 0.9% NACL WITH KCL 20 MEQ/L 1,000 ML IV SCH ×2 (03:43→05:59)
[2020-10-08] MEDS: DEXAMETHASONE SOD PHOSPHATE 4 MG/ML 1 ML VIAL IV SCH ×3 (05:57→12:16)
[2020-10-08] MEDS: HYDROmorphone 0.5 MG/0.5 ML SYRINGE IVP PRN (06:09)
[2020-10-08 07:20] LABS: African American GFR (CKD) 48 (>60 ml/min/1.73 sqM); Anion Gap 7 mmol/L; Blood Urea Nitrogen 28 mg/dL (7-17); Calcium 7.6 mg/dL (8.4-10.2); Carbon Dioxide 25 mmol/L (22-30); Chloride 106 mmol/L (98-107); Glucose 124 mg/dL (74-99); Magnesium 2.1 mg/dL (1.6-2.3); Non-African American GFR(CKD) 41 (>60 ml/min/1.73 sqM); Potassium 4.7 mmol/L (3.5-5.1); Sodium 138 mmol/L (137-145)
--- NOTE | 2020-10-08 07:28 | P.PN ---
Subjective Progress Note Date: 10/07/20 Hospital course: Patient is a very pleasant 75-year-old female with a past medical history of chronic anemia and CKD stage III. Patient currently admitted under Ortho-business taxes specialist, Dr. Carpenter status post L4 through S1 decompression completed on 10/05/20. We have been consulted for continued medical management. Physical exam: Patient seen and fully evaluated at the bedside. Patient is currently postop day 2 and reports feeling much better than she previously felt yesterday. Pt states the decreased sensation in her left lower extremity and burning of left foot has completely subsided and currently rated postoperative pain 8 out of 10 at this time in which patient is receiving pain medication from RN as prescribed. Patient has been ambulatory in room and up and down the halls walking with walker without any noted difficulties. Patient denies having any headache, lightheadedness, dizziness, chest pain, palpitations, shortness of breath, abdominal pain, or experiencing any numbness/tingling/weakness in her extremities. General: non toxic, no distress, appears at stated age Derm: warm, dry Head: atraumatic, normocephalic, symmetric Eyes: EOMI, no lid lag, anicteric sclera Mouth: no lip lesion, mucus membranes moist Cardiovascular: S1S2 reg, no murmur, positive posterior tibial pulse bilateral, Lungs: CTA bilateral, no rhonchi, no rales , no accessory muscle use Abdominal: soft, nontender to palpation, no guarding, no appreciable organomegaly Ext: no gross muscle atrophy, no edema, no contractures. Range of motion intact. Neuro: GCS 15. CN II-XII grossly intact. Patient reports slight decrease in sensation to left lower extremity. Range of motion intact. No further focal neuro deficits Psych: Alert, oriented, appropriate affect Plan of care: Chronic low back pain status post lumbar spine decompression and fusion completed on 10/05/20 -Postop day 2 -Pain management, DVT prophylaxis, PT/OT, and weightbearing per primary admitting orthopedic team. Chronic kidney disease stage III -Continue to monitor closely with repeat a.m. labs. -No previous labs for baseline measurements. Anemia of chronic disease, stable -Likely chronic in nature, patient does report history of anemia and denies any noted bleeding or bruising. No previous labs for baseline measurements. -We will continue to monitor with repeat a.m. labs. Thank you for allowing us to participate in the care of this pleasant patient. Do not hesitate to contact us with questions. Someone can be reached from the [facility] hospitalist group all hours of the day at [phone] or via perfect serve. Objective - Vital Signs Vital signs: Vital Signs Temp 99.0 F 10/07/20 07:35 Pulse 102 H 10/07/20 07:35 Resp 20 10/07/20 07:35 BP 117/71 10/07/20 07:35 Pulse Ox 90 L 10/07/20 07:35 Intake & Output 10/06/20 10/07/20 10/07/20 18:59 06:59 18:59 Intake Total 200 200 Output Total 60 1900 Balance 140 -1900 200 Intake: Oral 200 200 Output: Drainage 60 Back 60 Urine 1900 Other: Voiding Method Indwelling Catheter Indwelling Catheter - Labs CBC & Chem 7: 10/07/20 06:19 10/08/20 06:25 Labs: Abnormal Lab Results - Last 24 Hours (Table) 10/06/20 10/06/20 10/07/20 Range/Units 06:42 16:03 06:19 WBC 17.37 H 13.7 H 14.04 H (4.50-10.00) X 10*3/uL RBC 3.06 L 3.15 L 2.78 L (4.10-5.20) X 10*6/uL Hgb 9.1 L 9.8 L 8.2 L (12.0-15.0) g/dL Hct 29.8 L 29.0 L 26.6 L (37.2-46.3) % MCV 97.4 H (80.0-97.0) fL MCHC 30.5 L 30.8 L (32.0-37.0) g/dL RDW 14.6 H (11.5-14.5) % Immature Gran # 0.08 H (0.00-0.04) X 10*3/uL Neutrophils # 13.56 H (1.80-7.70) X 10*3/uL Monocytes # 1.38 H (0.20-1.00) X 10*3/uL Eosinophils # 0.02 L (0.04-0.35) X 10*3/uL
[2020-10-08 07:36] VITALS: BP 114/67; PULSE 84; RESP 20; TEMP 98.3
[2020-10-08] MEDS: CYCLOBENZAPRINE 10 MG TAB PO SCH (08:21)
[2020-10-08] MEDS: SENNOSIDES 8.6 MG TAB PO SCH (08:21)
[2020-10-08] MEDS: GABAPENTIN 300 MG CAP PO SCH (08:21)
[2020-10-08] MEDS: MORPHINE SULFATE ER 30 MG TABLET PO SCH (08:21)
[2020-10-08] MEDS: polyethylene glycoL 3350 17 GM POWD.PACK PO SCH (08:22)
[2020-10-08] MEDS: PANTOPRAZOLE 40 MG TABLET PO SCH (08:22)
[2020-10-08] MEDS: CITRIC ACID-SODIUM CITRATE 15 ML CUP PO SCH ×2 (08:22→12:11)
[2020-10-08] MEDS: allopurinoL 100 MG TAB PO SCH (08:22)
--- NOTE | 2020-10-08 09:10 | P.PN ---
Subjective Progress Note Date: 10/08/20 Principal diagnosis: Spondylolisthesis L4-L5 Patient seen at bedside this morning. She is laying semirecumbent. She is alert and oriented 3. Patient says she walked around the [place] yesterday and is doing well; she says she walks she was pretty sore. She says she thinks she is ready to go to the next step in recovery. She said this morning she did do some bicycle exercises in bed. Patient says she has been passing flatus. Patient also says she has been using incentive spirometer throughout the day. Patient denies any new numbness/tingling. Patient denies loss of bladder/bowel control. Patient denies any saddle anesthesia. Patient denies fever, shortness of beti th, chest, change in vision, nausea, vomiting. Objective - Vital Signs Vital signs: Vital Signs Temp 98.3 F 10/08/20 07:36 Pulse 84 10/08/20 07:36 Resp 20 10/08/20 07:36 BP 114/67 10/08/20 07:36 Pulse Ox 92 L 10/08/20 07:36 Intake & Output 10/07/20 10/08/20 10/08/20 18:59 06:59 18:59 Intake Total 400 942.5 Output Total 400 1600 Balance 0 -657.5 Intake: Intake, IV Titration 942.5 Amount 0.9% NaCl with KCl 20 Meq 792.5 /l 1,000 ml @ 75 mls/hr IV .[id number] [facility] Rx#: [id number] Gentamicin in NaCl Iso- 100 Osm Pmx 80 mg In Saline 1 100ml.bag @ 100 mls/hr IVPB Q24H [facility] Rx#: [id number] ceFAZolin 2 gm In Sodium 50 Chloride 0.9% 50 ml @ 100 mls/hr IVPB Q12HR [facility] Rx #:[id number] Oral 400 Output: Urine 400 1600 Uretheral (Corey) 800 Other: Voiding Method Indwelling Catheter - Exam Incision is clean, dry, intact. There is no fluctuance or purulence from incision. Sutures are intact. Drain was removed and dressing was changed. There is minimal serosanguineous drainage while drain was removed. Incision site was cleaned with ChloraPrep. Adaptics, 4 x 4's, ABDs were applied along with foam tape over the incision. - Labs CBC & Chem 7: 10/07/20 06:19 10/08/20 06:25 Labs: Abnormal Lab Results - Last 24 Hours (Table) 10/07/20 10/08/20 Range/Units 06:19 06:25 WBC 14.04 H (4.50-10.00) X 10*3/uL RBC 2.78 L (4.10-5.20) X 10*6/uL Hgb 8.2 L (12.0-15.0) g/dL Hct 26.6 L (37.2-46.3) % MCHC 30.8 L (32.0-37.0) g/dL RDW 14.6 H (11.5-14.5) % BUN 28 H (7-17) mg/dL Creatinine 1.26 H (0.52-1.04) mg/dL Glucose 124 H (74-99) mg/dL Calcium 7.6 L (8.4-10.2) mg/dL Microbiology - Last 24 Hours (Table) 10/06/20 16:03 Blood Culture - Preliminary Blood No Growth after 24 hours Assessment and Plan Assessment: 75 yo female post-op day 3 L4-S1 decompression fusion 1. 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 L5-S1 spondylosis severe with radiculopathy Plan: 1. L4-S1 Decompression and Fusion - surgery performed 10/05/2020. We'll continu e to follow patient. 2. Appreciate medical management 3. Pain management - stable at this time. Continue regular home morphine. We will discontinue Dilaudid and begin tramadol. 4. GI prophylaxis - continue senna 5. PT/OT - weightbearing as tolerated; up out of bed 4 times a day and up out of bed for all meals 6. Discharge planning- plan for discharge today, 10/08/2020, to rehab. Time with Patient: Less than 30
[2020-10-08] MEDS: traMADol 50 MG TAB PO SCH ×2 (09:19→14:22)
--- NOTE | 2020-10-08 09:59 | P.PN ---
Subjective Progress Note Date: 10/08/20 Hospital course: Patient is a very pleasant 75-year-old female with a past medical history of chronic anemia and CKD stage III. Patient currently admitted under Ortho-applications support specialist, Dr. Carpenter status post L4 through S1 decompression completed on 10/05/20. We have been consulted for continued medical management. Physical exam: Patient seen and fully evaluated at the bedside. Patient is currently postop day 3 and reports feeling great today. However, pt does continue to have persistent urinary retention status post surgery and per RN has been retaining > 600 cc of urine requiring straight catheterization. Patient denies any saddle bag diana and denies having any numbness or tingling sensations in her lower extremities. Patient passing flatus and denies any abdominal pain or complaints. Dr. Carpenter was notified and recommended started patient on Flomax, reinsert Mckeon and consult urology. RN notified and orders placed. Patient continues to be ambulatory in room and walking up and down the hallways with walker. She denies having any headache, lightheadedness, dizziness, chest pain, palpitations, shortness of breath, abdominal pain, or experiencing any numbness/tingling/weakness in her extremities. Per ortho-spine team, plan is for discharge to SNF later today. Per Dr. Carpenter, pt may be discharged with mckeon catheter in place. General: non toxic, no distress, appears at stated age Derm: warm, dry Head: atraumatic, normocephalic, symmetric Eyes: EOMI, no lid lag, anicteric sclera Mouth: no lip lesion, mucus membranes moist Cardiovascular: S1S2 reg, no murmur, positive posterior tibial pulse bilateral, Lungs: CTA bilateral, no rhonchi, no rales , no accessory muscle use Abdominal: soft, nontender to palpation, no guarding, no appreciable organomegaly Ext: no gross muscle atrophy, no edema, no contractures. Range of motion intact. Neuro: GCS 15. CN II-XII grossly intact. Patient reports slight decrease in sensation to left lower extremity. Range of motion intact. No further focal neuro deficits Psych: Alert, oriented, appropriate affect Plan of care: Status post lumbar spine decompression and fusion completed on 10/05/20 -Postop day 3 -Pain management, DVT prophylaxis, PT/OT, and weightbearing per primary admitting orthopedic team. Urinary retention -Flomax 0.4 mg daily -Urology consult -Reinsert Mckeon catheter secondary to repeated episodes of urinary retention/postvoid residual greater than 600 mL requiring straight jayde terization. Chronic kidney disease stage III, stable -Patient reports history of CKD however there are no previous labs for baseline measurements. Anemia of chronic disease, stable -Likely chronic in nature, patient does report history of anemia and denies any noted bleeding or bruising. No previous labs for baseline measurements. Thank you for allowing us to participate in the care of this pleasant patient. Do not hesitate to contact us with questions. Someone can be reached from the [facility] hospitalist group all hours of the day at [phone] or via Telebit. Objective - Vital Signs Vital signs: Vital Signs Temp 98.3 F 10/08/20 07:36 Pulse 84 10/08/20 07:36 Resp 20 10/08/20 07:36 BP 114/67 10/08/20 07:36 Pulse Ox 92 L 10/08/20 07:36 Intake & Output 10/07/20 10/08/20 10/08/20 18:59 06:59 18:59 Intake Total 400 942.5 Output Total 400 1600 Balance 0 -657.5 Intake: Intake, IV Titration 942.5 Amount 0.9% NaCl with KCl 20 Meq 792.5 /l 1,000 ml @ 75 mls/hr IV .[id number] [facility] Rx#: [id number] Gentamicin in NaCl Iso- 100 Osm Pmx 80 mg In Saline 1 100ml.bag @ 100 mls/hr IVPB Q24H [facility] Rx#: [id number] ceFAZolin 2 gm In Sodium 50 Chloride 0.9% 50 ml @ 100 mls/hr IVPB Q12HR [facility] Rx #:[id number] Oral 400 Output: Urine 400 1600 Uretheral (Mckeon) 800 Other: Voiding Method Indwelling Catheter Indwelling Catheter - Labs CBC & Chem 7: 10/07/20 06:19 10/08/20 06:25 Labs: Abnormal Lab Results - Last 24 Hours (Table) 10/08/20 Range/Units 06:25 BUN 28 H (7-17) mg/dL Creatinine 1.26 H (0.52-1.04) mg/dL Glucose 124 H (74-99) mg/dL Calcium 7.6 L (8.4-10.2) mg/dL Microbiology - Last 24 Hours (Table) 10/06/20 16:03 Blood Culture - Preliminary Blood No Growth after 24 hours
[2020-10-08] MEDS ORDERED: TAMSULOSIN 0.4 MG CAP.ER.24H PO SCH (11:00)
[2020-10-08 11:49] LABS: HCT 28.1 % (37.2-46.3); HGB 8.4 g/dL (12.0-15.0); MCH 29.5 pg (27.0-32.0); MCHC 29.9 g/dL (32.0-37.0); MCV 98.6 fL (80.0-97.0); Mean Platelet Volume 10.6 fL (9.5-12.2); Platelet Count 194 X 10*3/uL (140-440); RBC 2.85 X 10*6/uL (4.10-5.20); RDW 14.8 % (11.5-14.5); WBC 15.09 X 10*3/uL (4.50-10.00)
--- NOTE | 2020-10-08 12:24 | P.DS ---
Providers Date of admission: 10/05/20 08:20 Expected date of discharge: 10/08/20 Attending physician: Kamar Carpenter DO Consults: 10/05/20 18:33 Consult Physician Routine Consulting Provider: Andressa Diehl Consult Reason/Comments: Medical management s/p lumbar fusion Do you want consulting provider notified?: Yes 10/08/20 10:52 Consult Physician Routine Consulting Provider: Shubham Zamora Consult Reason/Comments: Urinary retention >600 cc status post lumbar fusion Do you want consulting provider notified?: Yes Primary care physician: Liya Orona DO Hospital Course: Date of admission: 10/05/2020 Date of discharge: 10/08/2020 Admission diagnosis: 1. L4-5 Grade II spondylolisthesis 2. L4-S1 spondylosis 3. L4-S1 stenosis 4. Neurogenic claudication 5. Mechanical back pain Discharge diagnosis: Same Attending physician: Dr. Carpenter Surgical procedures: 1. L4-S1 posteriolateral interbody fusion 2. L4-S1 bilateral laminectomy, complete facetectomy and foraminotomy 3. L4-5 Intradiscal osteotomy for correction of deformity (3 column) 4. L4-5 spondylolisthesis reduction Brief history: Patient is a 75-year-old female with a history of worsening low back pain, bilateral lower extremity radiculopathy. At this point patient has failed conservative treatment measures and has opted to proceed with a elective L4 to S1 posterior lateral interbody fusion, bilateral laminectomy, complete facetectomy and foraminotomy. Hospital course: Details of patient's surgery can be found in operative report. Patient tolerated the procedure well and was subsequently transported to orthopedic floor. Patient's orthopeidc and medical care was provided daily. Patient had daily laboratory tests performed for evaluation of overall blood counts. Patient had daily physical therapy to include strengthening range of motion as well as education with walker ambulation. Patient was noted to have a relatively uneventful postoperative course. Patient reported satisfactory pain control with oral pain medications by postoperative day 3. Patient showed satisfactory progress with physical therapy. Patient moved steadily through the program and had no difficulty meeting the goals by postoperative day 3. Given patient's otherwise satisfactory course and having met physical therapy goals, plan is to discharge patient to rehab on postoperative day 3. Discharge condition/disposition: Patient will be discharged to rehab in stable condition. Discharge medications: Instructions are given on resumption of patient's normal daily medications per primary care recommendation, in addition patient will be prescribed gabapentin 300 mg; tramadol 50 mg; senna; Flexeril 10 mg. Spine Discharge and Recovery Instructions Medications: See medication list All medication refills should be obtained through your primary care doctor or your clinic spine surgeon. Please discuss prescription refills at your follow up appointment. Do not call the hospital for medication refills. Dressing: Leave your dressing in place for a total of 5 days post operatively. Then you may remove your dressing and leave open to air. Keep the area clean and if not able to keep area clean, then cover with sterile gauze and tape. Showering: You may shower 3 days after your procedure allowing soap and water to run over incision. Do not scrub. Do not soak. Blot dry. Follow up: Please confirm a follow up appointment with your surgeon 3 weeks post operatively. Please make an appointment to follow up with your PCP in 1-2 weeks after surgery for evaluation 3 phase, 3-week plan POST OP WEEKS 1-3 1. Lifting/carrying/pushing/pulling limited to less than 5 pounds. 2. Do not sit for longer than 15 minutes at one time. Get up and walk around. Prolonged sitting is NOT advised. If you lay down, see if you can tolerate laying down on you front (belly side) 3. Walk for periods of 15 minutes = 1 mile but no longer; do it multiple times times each day. 4. Ice your low back after activity. POST OP WEEKS 3-6 1. Lifting limited to less than 20 pounds. 2. Do not sit for longer than 30 minutes at a time. Frequently change positions. Use a sit-to stand workstation or take frequent breaks from sitting if you have returned to work. 3. Walk for 30 minutes each day. If possible, do these three or more times a day POST OP WEEKS 6+ At your 6-week appointment we will give you a physical therapy referral to focus on a core stabilization and strengthening program. You should also work on leg & buttock strengthening, hamstring & quadriceps stretching, and continue a low impact aerobic activity program such as swimming, walking, or riding a stationary bicycle. During the initial 6 weeks after your surgery, you are at the highest risk of re-injuring your spine. You should generally avoid BLTs (bending, lifting and twisting combination motions) and follow the above guidelines to reduce the chance of reinjury. You can anticipate post op appointments in our office at approximately 3 weeks and 6 weeks after your surgery. INCISION CARE: If your incision is not draining you do NOT need to cover it with a dressing. Keep your incision clean, dry and intact. In most cases, we apply skin glue, carlotta or sutures to the incision at the time of surgery. This will be like a crust or have the appearance of a scab and will fall off in time on its own. The stitches or carlotta need to be removed at 3 weeks post op appointment. You may begin to shower 3 days after surgery (this allows the glue to garcia well). However, please avoid scrubbing the incision site or peeling off any of the skin glue. This will ensure optimal healing of your incision. Also, during this time avoid soaking the incision area in water - this includes swimming pools, hot tubs or baths. No ointments, lotions or oils on the incision until your surgeon allows. Leave carlotta, sutures or glue in place. Neurological dysfunction that comes on suddenly can also be a sign of a stroke. Below some common symptoms of a stroke are listed: B - balance difficulty such as sudden onset walking or leaning to one side - NEW E - eye problem such as sudden double vision or trouble seeing on one side - NEW F - Facial weakness or numbness on one side - NEW A - Arm or leg weakness or numbness on one side - NEW S - Slurred speech or difficulty with word finding - NEW T - Time is BRAIN! Call 911 as soon as you recognize these symptoms Diet: Consume a regular diet rich in vegetables and lean protein such as chicken or fish. You should consume in a ratio of approximately 20% fats|40% carbohydrates|40%protein. Vegetables, sweet potatoes, brown rice or quinoa are examples of good carbohydrates. Chips, white bread, cookies and sweets/sugar are examples of bad carbohydrates. Limit your bad carbs, go wild with good carbs. "Life's Simple 7" Guidelines as per [employer] [place] [employer] These will help you reclaim your life after surgery and candy spreader helper in your recovery, keeping in mind your restrictions. (1) Get Active. Physical activity can help people lose weight, control high blood pressure and cholesterol, feel emotionally better, and sleep better. (2) Control Cholesterol. Avoid a diet high in saturated fat, trans fat, & cholesterol. Limit whole milk & cream, ice cream, butter, egg yolks, processed meats (like sausage and hot dogs), and fatty meats. Choose healthy foods that are low in saturated fat, trans fat and cholesterol which include: Fruits and vegetables, fiber rich grain products (like whole grain pasta and brown rice), lean meat such as chicken, fish, nuts, seeds, and legumes. (3) Eat Better. Eat small portions. Shop at the grocery with a list and do not stray from it. Tips for a healthy diet include: Limit sodium intake to less than 1500mg daily, avoid prepackaged, processed, and fast foods, choose a diet rich in fruits, vegetables, and whole grain, high fiber foods, and limit saturated & cholesterol in your diet. (4) Manage Blood Pressure. If you have high blood pressure, you should have a cuff at home so that you can check your blood pressure regularly. Be sure you have a good cuff. An arm one is generally better than a wrist one. Bring the cuff to a doctor's appointment to validate that the measurements that your cuff are taking are accurate. Take your blood pressure twice daily when you are sitting down and relaxing. Record the numbers in a log and bring this log with you to your doctors' appointments. (5) Lose Weight if your BMI is above 25. A healthy BMI is between 19-25. To calculate Your BMI, you may use a Standard BMI Calculator on the NIH BMI website: <www.nhlbi.nih.gov/guidelines/obesity/BMI/bmicalc.htm>. Weigh oneself daily. If you are overweight, set a goal to lose weight. A pound a week loss if needed is a good target. (6) Reduce Blood Sugar. Limit foods and liquids with "added sugars." (Added sugars include sucrose, fructose, glucose, maltose, dextrose, high fructose corn syrup, corn syrup, concentrated fruit juice and honey). (7) Stop Smoking. If you smoke, quitting smoking is one of the best things that you can do for your health. Smoking increases your risk of heart attack, stroke, and peripheral vascular disease, which is a build-up of plaque in your arteries. Please discard all the cigarettes and lighters in your house. Have a plan for what you will do when you have the urge to smoke. Direct and second- hand smoke shortens your life as well as the lives of your family, friends and others around you. For your health and the health of those around you, please consider quitting! Proper Bending Body Mechanics: Maintain a wide stance with one foot slightly in front of the other. Keep your back straight. Bend utilizing the strength in your hips and knees. Do not bend at the waist. Maintain the lifted object at your waist-level close to your body. Avoid lifting weight that causes immediately pain or pain anywhere in the body afterwards. Smoking/Nicotine If there was ever one thing that you could do to increase your overall health, decrease your risk of cardiovascular problems by about 39% the second you make the choice, it is to STOP SMOKING. Your body's most instant gratification is the second you stop smoking. We have all heard the studies, read the articles but it is true, smoking is extremely bad for your overall health, and moreover it is detrimental to your bone health. Nicotine, IN ANY FORM, kills bone cells, prevents your body from healing fractures, and significantly prolongs healing after surgery. In spine surgery specifically, it increases your risk of not healing your bones to create a fusion and increases your risk of having a revision surgery due to this up to 60%. I know it is hard. I know it feels impossible. But there are ways. Take control of your life. We are here to help you through it. And when you are ready, ask us and we can direct you to help if you desire. Use the START Plan to Quit Smoking (please visit the Helpguide.org website listed below for more information): S = Set a quit date. Choose a date within the next 2 weeks, so you have enough time to prepare without losing your motivation to quit. If you mainly smoke at work, quit on the weekend, so you have a few days to adjust to the change. T = Tell family, friends, and co-workers that you plan to quit. Let your friends and family in on your plan to quit smoking and tell them you need their support and encouragement to stop. Look for a quit jm who wants to stop smoking as well. You can help each other get through the rough times. A = Anticipate and plan for the challenges you'll face while quitting. Most people who begin smoking again do so within the first 3 months. You can help yourself make it through by preparing ahead for common challenges, such as nicotine withdrawal and cigarette cravings. R = Remove cigarettes and other tobacco products from your home, car, and work. Throw away all your cigarettes (no emergency pack!), lighters, ashtrays, and matches. Wash your clothes and freshen up anything that smells like smoke. Shampoo your car, clean your drapes and carpet, and steam your furniture. T = Talk to your doctor about getting help to quit. Your doctor can prescribe medication to help with withdrawal and suggest other alternatives. If you can't see a doctor, you can get many products over the counter at your local pharmacy or grocery store, including the nicotine patch, nicotine lozenges, and nicotine gum. Resources for Quitting Smoking: <https://www.[place].gov/documents/[facility]/Quit_Tobacco_Resources_for_patients_313 480_7.pdf> Supplementation: Take recommended dosages of Vitamin D and Calcium to help fortify your bones and help them to heal. See your health maintenance packet for dosages and recommended levels. DVT/VTE prophylaxis: You will be given compression stockings from the hospital. Wear these daily for the first two weeks after surgery. You may take them off at night. You may be prescribed a medication to help thin your blood. Take this as directed. If you are not prescribed this medication, early and frequent ambulation has been shown to be the best prophylaxis to deep vein thrombosis and sequelae related to this event. Assessment: 1. L4-5 Grade II spondylolisthesis 2. L4-S1 spondylosis 3. L4-S1 stenosis 4. Neurogenic claudication 5. Mechanical back pain Procedures: 1. L4-S1 posteriolateral interbody fusion 2. L4-S1 bilateral laminectomy, complete facetectomy and foraminotomy 3. L4-5 Intradiscal osteotomy for correction of deformity (3 column) 4. L4-5 spondylolisthesis reduction Patient Condition at Discharge: Good Plan - Discharge Summary Discharge Rx Participant: Yes New Discharge Prescriptions: New Cyclobenzaprine [Flexeril] 10 mg PO HS #28 tab Tamsulosin [Flomax] 0.4 mg PO PC-BRKFST 30 Days #30 cap.er.24h Sennosides [Senokot] 8.6 mg PO DAILY tab Continue Linaclotide [Linzess] 145 mcg PO DAILY Meclizine [Antivert] 12.5 mg PO TID PRN PRN Reason: dizziness Ketoconazole 2% Cream [Nizoral 2%] 1 applic TOPICAL DAILY polyethylene glycoL 3350 [Miralax] 17 gm PO Q48H Magnesium Oxide 400 mg PO DAILY Nitroglycerin Sl Tabs [Nitrostat] 0.4 mg SUBLINGUAL Q5M PRN PRN Reason: Chest Pain Allopurinol [Zyloprim] 100 mg PO DAILY Claritin(Dose Unknown) 1 tab PO DAILY calcitrioL [Calcitriol] 0.25 mcg PO ONCE Prochlorperazine [Compazine] 10 mg PO Q6H PRN PRN Reason: Nausea Denosumab [Prolia] 120 mg SQ DIRECTED Furosemide [Lasix] 20 mg PO DAILY Esomeprazole Magnesium [NexIUM] 40 mg PO DAILY Ferrous Sulfate [Slow Release Iron] 250 mg PO DAILY Folic Acid 1 mg PO DAILY No Action Morphine Sulfate [Ms Contin] 30 mg PO Q12HR Morphine Sulfate Ir [MSIR] 15 mg PO BID PRN PRN Reason: Pain Triamcinolone 0.1% Cream [Kenalog 0.1% Cream] 1 applic TOPICAL DAILY PRN PRN Reason: Rash Zim,S Max Freeze 1 applicate TOPICAL DIRECTED PRN PRN Reason: Pain Col-Ride 1 tab PO DAILY Gabapentin [Neurontin] 100 mg PO BID Cyclobenzaprine [Flexeril] 10 mg PO TID Aspirin 325 mg PO DAILY PRN PRN Reason: Pain Aspirin EC [Ecotrin Low Dose] 81 mg PO DAILY Ammonium Lactate Cream [Lac-Hydrin 12% Cream] 1 applic TOPICAL BID Discharge Medication List Allopurinol [Zyloprim] 100 mg PO DAILY 10/01/20 [History] Ammonium Lactate Cream [Lac-Hydrin 12% Cream] 1 applic TOPICAL BID 10/01/20 [History] Aspirin 325 mg PO DAILY PRN 10/01/20 [History] Aspirin EC [Ecotrin Low Dose] 81 mg PO DAILY 10/01/20 [History] Claritin(Dose Unknown) 1 tab PO DAILY 10/01/20 [History] Col-Ride 1 tab PO DAILY 10/01/20 [History] Denosumab [Prolia] 120 mg SQ DIRECTED 10/01/20 [History] Esomeprazole Magnesium [NexIUM] 40 mg PO DAILY 10/01/20 [History] Ferrous Sulfate [Slow Release Iron] 250 mg PO DAILY 10/01/20 [History] Folic Acid 1 mg PO DAILY 10/01/20 [History] Furosemide [Lasix] 20 mg PO DAILY 10/01/20 [History] Gabapentin [Neurontin] 100 mg PO BID 10/01/20 [History] Ketoconazole 2% Cream [Nizoral 2%] 1 applic TOPICAL DAILY 10/01/20 [History] Linaclotide [Linzess] 145 mcg PO DAILY 10/01/20 [History] Magnesium Oxide 400 mg PO DAILY 10/01/20 [History] Meclizine [Antivert] 12.5 mg PO TID PRN 10/01/20 [History] Morphine Sulfate Ir [MSIR] 15 mg PO BID PRN 10/01/20 [History] Morphine Sulfate [Ms Contin] 30 mg PO Q12HR 10/01/20 [History] Nitroglycerin Sl Tabs [Nitrostat] 0.4 mg SUBLINGUAL Q5M PRN 10/01/20 [History] Prochlorperazine [Compazine] 10 mg PO Q6H PRN 10/01/20 [History] Triamcinolone 0.1% Cream [Kenalog 0.1% Cream] 1 applic TOPICAL DAILY PRN 10/01/20 [History] Wendy Villatoro Max Freeze 1 applicate TOPICAL DIRECTED PRN 10/01/20 [History] polyethylene glycoL 3350 [Miralax] 17 gm PO Q48H 10/01/20 [History] Cyclobenzaprine [Flexeril] 10 mg PO TID 10/05/20 [History] calcitrioL [Calcitriol] 0.25 mcg PO ONCE 10/05/20 [History] Cyclobenzaprine [Flexeril] 10 mg PO HS #28 tab 10/08/20 [Rx] Sennosides [Senokot] 8.6 mg PO DAILY tab 10/08/20 [Rx] Tamsulosin [Flomax] 0.4 mg PO PC-BRKFST 30 Days #30 cap.er.24h 10/08/20 [Rx] Follow up Appointment(s)/Referral(s): Liya Orona DO [Primary Care Provider] - 1 Week [facility], [NON-STAFF] - Kamar Carpenter DO [Doctor of Osteopathic Medicine] - 2 Weeks Chauncey Garcia MD [STAFF PHYSICIAN] - 1 Week (urinary retention ) Activity/Diet/Wound Care/Special Instructions: Spine Discharge and Recovery Instructions Date of Surgery: 10/05/2020 Diagnosis: L4 5 spondylolisthesis, L4 to S1 spondylosis Procedure: L4-S1 decompression fusion Medications: See list All medication refills should be obtained through your primary care doctor or your clinic spine surgeon. Please discuss prescription refills at your follow up appointment. Do not call the hospital for medication refills. Dressing: Leave your dressing in place for a total of 3 days post operatively. Then you may remove your dressing and leave open to air. Keep the area clean and if not able to keep area clean, then cover with sterile gauze and tape. Showering: You may shower 3 days after your procedure allowing soap and water to run over incision. Do not scrub. Do not soak. Blot dry. Follow up: Please confirm a follow up appointment with your surgeon 2 weeks post operatively. Please make an appointment to follow up with your PCP in 1-2 weeks after surgery for evaluation 3 phase, 3-week plan POST OP WEEKS 1-3 1. Lifting/carrying/pushing/pulling limited to less than 5 pounds. 2. Do not sit for longer than 15 minutes at one time. Get up and walk around. Prolonged sitting is NOT advised. If you lay down, see if you can tolerate laying down on you front (belly side) 3. Walk for periods of 15 minutes = 1 mile but no longer; do it multiple times times each day. 4.Ice your low back after activity. POST OP WEEKS 3-6 1. Lifting limited to less than 20 pounds. 2. Do not sit for longer than 30 minutes at a time. Frequently change positions. Use a sit-to stand workstation or take frequent breaks from sitting if you have returned to work. 3. Walk for 30 minutes each day. If possible, do these three or more times a day POST OP WEEKS 6+ At your 6-week appointment we will give you a physical therapy referral to focus on a core stabilization and strengthening program. You should also work on leg & buttock strengthening, hamstring & quadriceps stretching, and continue a low impact aerobic activity program such as swimming, walking, or riding a stationary bicycle. During the initial 6 weeks after your surgery, you are at the highest risk of re-injuring your spine. You should generally avoid BLTs (bending, lifting and twisting combination motions) and follow the above guidelines to reduce the chance of reinjury. You can anticipate post op appointments in our office at approximately 3 weeks and 6 weeks after your surgery. INCISION CARE: If your incision is not draining you do NOT need to cover it with a dressing. Keep your incision clean, dry and intact. In most cases, we apply skin glue, carlotta or sutures to the incision at the time of surgery. This will be like a crust or have the appearance of a scab and will fall off in time on its own. The stitches or carlotta need to be removed at 3 weeks post op appointment. You may begin to shower 3 days after surgery (this allows the glue to garcia well). However, please avoid scrubbing the incision site or peeling off any of the skin glue. This will ensure optimal healing of your incision. Also, during this time avoid soaking the incision area in water - this includes swimming pools, hot tubs or baths. No ointments, lotions or oils on the incision until your surgeon allows. Leave carlotta, sutures or glue in place. Neurological dysfunction that comes on suddenly can also be a sign of a stroke. Below some common symptoms of a stroke are listed: B - balance difficulty such as sudden onset walking or leaning to one side - NEW E - eye problem such as sudden double vision or trouble seeing on one side - NEW F - Facial weakness or numbness on one side - NEW A - Arm or leg weakness or numbness on one side - NEW S - Slurred speech or difficulty with word finding - NEW T - Time is BRAIN! Call 911 as soon as you recognize these symptoms Diet: Consume a regular diet rich in vegetables and lean protein such as chicken or fish. You should consume in a ratio of approximately 20% fats|40% carbohydrates|40%protein. Vegetables, sweet potatoes, brown rice or quinoa are examples of good carbohydrates. Chips, white bread, cookies and sweets/sugar are examples of bad carbohydrates. Limit your bad carbs, go wild with good carbs. "Life's Simple 7" Guidelines as per [employer] [place] [employer] These will help you reclaim your life after surgery and candy spreader helper in your recovery, keeping in mind your restrictions. (1) Get Active. Physical activity can help people lose weight, control high blood pressure and cholesterol, feel emotionally better, and sleep better. (2) Control Cholesterol. Avoid a diet high in saturated fat, trans fat, & cholesterol. Limit whole milk & cream, ice cream, butter, egg yolks, processed meats (like sausage and hot dogs), and fatty meats. Choose healthy foods that are low in saturated fat, trans fat and cholesterol which include: Fruits and vegetables, fiber rich grain products (like whole grain pasta and brown rice), lean meat such as chicken, fish, nuts, seeds, and legumes. (3) Eat Better. Eat small portions. Shop at the grocery with a list and do not stray from it. Tips for a healthy diet include: Limit sodium intake to less than 1500mg daily, avoid prepackaged, processed, and fast foods, choose a diet rich in fruits, vegetables, and whole grain, high fiber foods, and limit saturated & cholesterol in your diet. (4) Manage Blood Pressure. If you have high blood pressure, you should have a cuff at home so that you can check your blood pressure regularly. Be sure you have a good cuff. An arm one is generally better than a wrist one. Bring the cuff to a doctor's appointment to validate that the measurements that your cuff are taking are accurate. Take your blood pressure twice daily when you are sitting down and relaxing. Record the numbers in a log and bring this log with you to your doctors' appointments. (5) Lose Weight if your BMI is above 25. A healthy BMI is between 19-25. To calculate Your BMI, you may use a Standard BMI Calculator on the NIH BMI website: <www.nhlbi.nih.gov/guidelines/obesity/BMI/bmicalc.htm>. Weigh oneself daily. If you are overweight, set a goal to lose weight. A pound a week loss if needed is a good target. (6) Reduce Blood Sugar. Limit foods and liquids with "added sugars." (Added sugars include sucrose, fructose, glucose, maltose, dextrose, high fructose corn syrup, corn syrup, concentrated fruit juice and honey). (7) Stop Smoking. If you smoke, quitting smoking is one of the best things that you can do for your health. Smoking increases your risk of heart attack, stroke, and peripheral vascular disease, which is a build-up of plaque in your arteries. Please discard all the cigarettes and lighters in your house. Have a plan for what you will do when you have the urge to smoke. Direct and second- hand smoke shortens your life as well as the lives of your family, friends and others around you. For your health and the health of those around you, please c onsider quitting! Proper Bending Body Mechanics: Maintain a wide stance with one foot slightly in front of the other. Keep your back straight. Bend utilizing the strength in your hips and knees. Do not bend at the waist. Maintain the lifted object at your waist-level close to your body. Avoid lifting weight that causes immediately pain or pain anywhere in the body afterwards. Smoking/Nicotine If there was ever one thing that you could do to increase your overall health, decrease your risk of cardiovascular problems by about 39% the second you make the choice, it is to STOP SMOKING. Your body's most instant gratification is the second you stop smoking. We have all heard the studies, read the articles but it is true, smoking is extremely bad for your overall health, and moreover it is detrimental to your bone health. Nicotine, IN ANY FORM, kills bone cells, prevents your body from healing fractures, and significantly prolongs healing after surgery. In spine surgery specifically, it increases your risk of not healing your bones to create a fusion and increases your risk of having a revision surgery due to this up to 60%. I know it is hard. I know it feels impossible. But there are ways. Take control of your life. We are here to help you through it. And when you are ready, ask us and we can direct you to help if you desire. Use the START Plan to Quit Smoking (please visit the Helpguide.org website listed below for more information): S = Set a quit date. Choose a date within the next 2 weeks, so you have enough time to prepare without losing your motivation to quit. If you mainly smoke at work, quit on the weekend, so you have a few days to adjust to the change. T = Tell family, friends, and co-workers that you plan to quit. Let your friends and family in on your plan to quit smoking and tell them you need their support and encouragement to stop. Look for a quit jm who wants to stop smoking as well. You can help each other get through the rough times. A = Anticipate and plan for the challenges you'll face while quitting. Most people who begin smoking again do so within the first 3 months. You can help yourself make it through by preparing ahead for common challenges, such as nicotine withdrawal and cigarette cravings. R = Remove cigarettes and other tobacco products from your home, car, and work. Throw away all your cigarettes (no emergency pack!), lighters, ashtrays, and matches. Wash your clothes and freshen up anything that smells like smoke. Shampoo your car, clean your drapes and carpet, and steam your furniture. T = Talk to your doctor about getting help to quit. Your doctor can prescribe medication to help with withdrawal and suggest other alternatives. If you can't see a doctor, you can get many products over the counter at your local pharmacy or grocery store, including the nicotine patch, nicotine lozenges, and nicotine gum. Resources for Quitting Smoking: <https://www.[place].gov/documents/[facility]/Quit_Tobacco_Resources_for_patients_313 480_7.pdf> Supplementation: Take recommended dosages of Vitamin D and Calcium to help fortify your bones and help them to heal. See your health maintenance packet for dosages and recommended levels. DVT/VTE prophylaxis: You will be given compression stockings from the hospital. Wear these daily for the first two weeks after surgery. You may take them off at night. You may be prescribed a medication to help thin your blood. Take this as directed. If you are not prescribed this medication, early and frequent ambulation has been shown to be the best prophylaxis to deep vein thrombosis and sequelae related to this event. Discharge Disposition: TRANSFER TO SNF/ECF
== END 2020-10-08 14:50 ==
LOC: 2ORMAIN 08:20 → OR 08:20 → UNDOADMIN 08:20 → 4SSUR 18:51 → 2ORMAIN 18:51 → UNDODISIN 10-08 14:50 → OR 10-08 14:50
PROVIDERS: ATTEND Orthopaedic Surgery
DX: M43.16 Spondylolisthesis, lumbar region (principal); M48.062 Spinal stenosis, lumbar region with neurogenic claudication; M47.817 Spondylosis without myelopathy or radiculopathy, lumbosacral region; M25.78 Osteophyte, vertebrae; Q76.49 Other congenital malformations of spine, not associated with scoliosis; M41.9 Scoliosis, unspecified; R33.9 Retention of urine, unspecified; D69.6 Thrombocytopenia, unspecified; K59.00 Constipation, unspecified; K21.9 Gastro-esophageal reflux disease without esophagitis; I25.2 Old myocardial infarction; M19.90 Unspecified osteoarthritis, unspecified site; I25.10 Atherosclerotic heart disease of native coronary artery without angina pectoris; Z20.822 Contact with and (suspected) exposure to COVID-19; I12.9 Hypertensive chronic kidney disease with stage 1 through stage 4 chronic kidney disease, or unspecified chronic kidney disease; N18.32 Chronic kidney disease, stage 3b; M06.9 Rheumatoid arthritis, unspecified; Z97.2 Presence of dental prosthetic device (complete) (partial); L40.9 Psoriasis, unspecified; E55.9 Vitamin D deficiency, unspecified; M10.9 Gout, unspecified; D64.9 Anemia, unspecified; Z87.442 Personal history of urinary calculi; Z87.440 Personal history of urinary (tract) infections; Z90.710 Acquired absence of both cervix and uterus; Z98.890 Other specified postprocedural states; Z98.42 Cataract extraction status, left eye; Z98.41 Cataract extraction status, right eye; Z87.891 Personal history of nicotine dependence; Z80.9 Family history of malignant neoplasm, unspecified; Z79.82 Long term (current) use of aspirin; Z79.899 Other long term (current) drug therapy; Z79.891 Long term (current) use of opiate analgesic; Z88.6 Allergy status to analgesic agent; Z88.1 Allergy status to other antibiotic agents; Z88.5 Allergy status to narcotic agent; Z88.2 Allergy status to sulfonamides; Z88.8 Allergy status to other drugs, medicaments and biological substances; Z88.0 Allergy status to penicillin
CPT/HCPCS: 22633; 22634; 22853; 93005 ×2; 97116; 97162; 97530; 97166; 86900; 86901; 80048 ×2; 84443; 82565; 82805; 83735 ×2; 85025; 85027 ×4; 86850; 87040; 80170; 87635; 72100; 72131; 36415; C1713 ×2; C1762 ×2; J1580 ×2; J2250; J3370; J1100 ×4; J0690 ×5; J2405; J2001; J3010; J2370; J0330; J2704; J1170 ×4